=== PATIENT | female | born 1955 | race Caucasian/White ===

== ENCOUNTER 2019-09-29 20:01 | Inpatient (IN) | payer SELFPAY ==
[~2019-09-29] VITALS: Ht 167.6 cm; Wt 74.8 kg
[2019-09-29] MEDS ORDERED: ASPIRIN 81 MG CHEW TAB PO ONE (21:30)
--- NOTE | 2019-09-29 21:31 | Emergency Department Note ---
History of Present Illnes History of Present Illness Chief Complaint: Genitourinary History of Present Illness This is a 63 year old female brought by family member for evaluation of decr eased mentation since . AO x 1 . Historian: Patient, Family Member Arrival Mode: Car Onset (how long ago): day(s) (4) Severity: moderate Duration (how long): day(s) (4) Timing of current episode: constant Progression: worsening Chronicity: new Relieving factors: none Exacerbating factors: none Associated symptoms: Reports weakness (ORLANDO STEWART DO) Past Medical/Family History Physician Review I have reviewed the patient's past medical and family history. Any updates have been documented here. (ORLANDO STEWART DO) [address] Maldonado at [facility] in [place], report given and accepted (KOFFI BAILEY) Social History Smoking Cessation: Never Smoker Alcohol Use: None Any Illegal Drug Use: No (ORLANDO STEWART DO) Review of Systems Review of Systems Constitutional: Reports no symptoms EENTM: Reports no symptoms Cardiovascular: Reports no symptoms Respiratory: Reports no symptoms Gastrointestinal: Reports no symptoms Genitourinary: Reports no symptoms Musculoskeletal: Reports no symptoms Integumentary: Reports no symptoms Neurological: Reports weakness, Reports other Psychological: Reports no symptoms Endocrine: Reports no symptoms Hematological/Lymphatic: Reports no symptoms (ORLANDO STEWART DO) Physical Exam Related Data Allergies: Coded Allergies: atorvastatin (Verified Allergy, Intermediate, 09/29/19) benzonatate (Verified Allergy, Intermediate, 09/29/19) bupropion (Verified Allergy, Intermediate, 09/29/19) ciprofloxacin (Verified Allergy, Intermediate, 09/29/19) hydrochlorothiazide (Verified Allergy, Intermediate, 09/29/19) hydroxyzine (Verified Allergy, Intermediate, 09/29/19) lisinopril (Verified Allergy, Intermediate, 09/29/19) promethazine (Verified Allergy, Intermediate, 09/29/19) Triage Vital Signs Vital Signs Date Time Temp Pulse Resp B/P (MAP) Pulse Ox O2 Delivery O2 Flow Rate FiO2 09/29/19 21:23 97.2 80 16 179/96 98 Room Air Vital signs reviewed: Yes (ORLANDO STEWART DO) Physical Exam CONSTITUTIONAL Constitutional: Present well-developed, Present well-nourished HENT HENT: Present normocephalic, Present atraumatic, Present oropharynx clear/mo ist, Present nose normal HENT L/R: Present left ext ear normal, Present right ext ear normal EYES Eyes: Reports PERRL, Reports conjunctivae normal NECK Neck: Present ROM normal PULMONARY Pulmonary: Present effort normal, Present breath sounds normal CARDIOVASCULAR Cardiovascular: Present regular rhythm, Present heart sounds normal, Present capillary refill normal, Present normal rate GASTROINTESTINAL Abdominal: Present soft, Present nontender, Present bowel sounds normal GENITOURINARY Genitourinary: Present exam deferred SKIN Skin: Present warm, Present dry MUSCULOSKELETAL Musculoskeletal: Present ROM normal NEUROLOGICAL Neurological: Present other PSYCHOLOGICAL Psychological: Present mood/affect normal, Present judgement normal (STEWART,ORLANDO DO) Constitutional: Present well-developed, Present well-nourished HENT: Present normocephalic, Present atraumatic Eyes: Reports PERRL Neck: Present ROM normal Pulmonary: Present other (decreased BS antonio in bases) Abdominal: Present soft Genitourinary: Present exam deferred Skin: Present warm, Present dry Musculoskeletal: Present ROM normal Neurological: Present alert, Present weakness Psychological: Present behavior normal (KOFFI BAILEY) Results Laboratory Lab results reviewed: Yes Laboratory comments Laboratory Tests Test 09/30/19 05:39 09/30/19 03:40 09/29/19 23:50 09/29/19 20:50 Venous Blood pH 7.395 (7.35-7.38) Venous Blood Partial Pressure CO2 53.3 (44-48) Venous Blood Partial Pressure O2 36 (40-41) Venous Blood HCO3 36.3 (21-22) Venous Blood Total Carbon Dioxide 38 Venous Blood Oxygen Saturation 66 Venous Blood Base Excess 11 FiO2 % 28 % Sodium Level 115 mmol/L (136-145) 114 mmol/L (136-145) Potassium Level 3.6 mmol/L (3.5-5.1) 3.5 mmol/L (3.5-5.1) Chloride Level 70 mmol/L (98-107) 66 mmol/L (98-107) Carbon Dioxide Level 35 mmol/L (22-29) 35 mmol/L (22-29) Anion Gap 13.6 mmol/L (8-16) 16.5 mmol/L (8-16) Blood Urea Nitrogen 12 mg/dL (7-26) 15 mg/dL (7-26) Creatinine 1.11 mg/dL (0.57-1.11) 1.41 mg/dL (0.57-1.11) Estimat Glomerular Filtration Rate 49 ML/MIN (60-) 38 ML/MIN (60-) BUN/Creatinine Ratio 11 (6-25) 11 (6-25) Glucose Level 126 mg/dL (74-118) 141 mg/dL (74-118) Calcium Level 9.6 mg/dL (8.4-10.2) 10.6 mg/dL (8.4-10.2) Total Bilirubin 1.8 mg/dL (0.2-1.2) 1.7 mg/dL (0.2-1.2) Aspartate Amino Transf (AST/SGOT) 42 IU/L (5-34) 48 IU/L (5-34) Alanine Aminotransferase (ALT/SGPT) 27 IU/L (0-55) 29 IU/L (0-55) Alkaline Phosphatase 65 IU/L (40-150) 67 IU/L (40-150) Total Protein 6.7 g/dL (6.5-8.1) 7.1 g/dL (6.5-8.1) Albumin 4.3 g/dL (3.5-5.0) 4.5 g/dL (3.5-5.0) Globulin 2.4 g/dL (2.3-3.5) 2.6 g/dL (2.3-3.5) Albumin/Globulin Ratio 1.8 (0.8-2.0) 1.7 (0.8-2.0) Urine Color Yellow (YELLOW) Urine Clarity Sl cloudy (CLEAR) Urine pH 8.5 (5 - 7) Urine Specific [place] 1.020 (1.010-1.025) Urine Protein Negative (NEGATIVE) Urine Glucose (UA) Negative (NEGATIVE) Urine Ketones Negative (NEGATIVE) Urine Blood Negative (NEGATIVE) Urine Nitrite Negative (NEGATIVE) Urine Bilirubin Negative (NEGATIVE) Urine Urobilinogen 0.2 mg/dL (0.2 - 1) Urine Leukocyte Esterase Negative (NEGATIVE) Urine RBC 11-20 /HPF (0-5) Urine WBC 21-50 /HPF (0-5) Urine Epithelial Cells Few /LPF (NONE) Urine Renal Epithelial Cells Few (NONE) Urine Amorphous Sediment Many (FEW) Urine Bacteria Many /HPF (NONE) Arterial Blood pH 7.45 (7.35-7.45) Arterial Blood Partial Pressure CO2 49 mmHg (35-45) Arterial Blood Partial Pressure O2 169 mmHg (80-105) Arterial Blood HCO3 35 mmol/L (22-26) Arterial Blood Oxygen Saturation 100.0 % (95-98) Arterial Blood Base Excess 11.0 mmol/L (-2 - 3) White Blood Count 9.49 x10e3/uL (4.8-10.8) Red Blood Count 2.92 x10e6/uL (3.6-5.1) Hemoglobin 9.9 g/dL (12.0-16.0) Hematocrit 27.1 % (34.2-44.1) Mean Corpuscular Volume 92.8 fL (81-99) Mean Corpuscular Hemoglobin 33.9 pg (28-32) Mean Corpuscular Hemoglobin Concent 36.5 g/dL (31-35) Red Cell Distribution Width 17.4 % (11.7-14.4) Platelet Count 424 x10e3/uL (140-360) Neutrophils (%) (Auto) 73.9 % (38.7-80.0) Lymphocytes (%) (Auto) 10.5 % (18.0-39.1) Monocytes (%) (Auto) 13.1 % (4.4-11.3) Eosinophils (%) (Auto) 1.5 % (0.0-6.0) Basophils (%) (Auto) 0.3 % (0.0-1.0) Neutrophils # (Auto) 7.0 (2.1-6.9) Lymphocytes # (Auto) 1.0 (1.0-3.2) Monocytes # (Auto) 1.2 (0.2-0.8) Eosinophils # (Auto) 0.1 (0.0-0.4) Basophils # (Auto) 0.0 (0.0-0.1) Absolute Immature Granulocyte (auto 0.07 x10e3/uL (0-0.1) Creatine Kinase 241 IU/L (29-168) Creatine Kinase MB 12.90 ng/mL (0-5.0) Troponin I 0.052 ng/mL (0-0.300) B-Type Natriuretic Peptide 25.6 pg/mL (0-100) (ORLANDO STEWART DO) Imaging Imaging results reviewed: Yes Impressions [facility] [address] [address] Patient Name: DIANE FRANKLIN MR #: [id number] : 1955 Age/Sex: 63/F Req #: [id number] Adm Physician: Ordered by: ORLANDO STEWART DO Report #: [id number] Location: ER Room/Bed: Procedure: [id number] CT/CT BRAIN WO Exam Date: 09/29/19 Exam Time: 2244 REPORT STATUS: Signed EXAMINATION: Head CT without contrast. HISTORY:Altered mental status, weakness. COMPARISON:None. TECHNIQUE: Multidetector axial images were obtained from the foramen magnum to the vertex without contrast. The images were reconstructed using brain and bone algorithms. Thin section brain images were reformatted into coronal and sagittal planes. Dose modulation, iterative reconstruction, and/or weight based adjustment of the mA/kV was utilized to reduce the radiation dose to as low as reasonably achievable. Intravenous contrast: None IMAGE QUALITY: Suboptimal evaluation particularly at the level of skull base and posterior fossa structures due to streak artifacts. FINDINGS: Skull/scalp: No lytic or blastic. lesions. No surgical changes. Parenchyma: Nonspecific few, scattered supratentorial white matter hypodensity are likely related to small vessel ischemic changes. Focal punctate hypodensity in the inferior aspect of right putamen represents prominent perivascular space. No acute hemorrhage, mass or acute major vascular territorial infarct. Arteries: No density suggestive of thrombosis. Dural sinuses: No abnormal density suggestive of thrombosis. Ventricles: No hydrocephalus or displacement. Extra-axial spaces: No abnormal density. Brain volume: Normal for age. Craniocervical junction: No mass, Chiari malformation, or basilar invagination. Sella: No mass. Paranasal/mastoid sinuses: Imaged portions unremarkable. IMPRESSION: No acute intracranial abnormality. Mild supratentorial white matter microvascular ischemic changes. Signed by: Dr. Wanda Fulton M.D. on 09/29/2019 11:49 PM Dictated By: WANDA FULTON MD 48 Transcribed By: JOSE on 09/29/192348 COPY TO: ORLANDO STEWART DO~ [address] [place] [address] Patient Name: DIANE FRANKLIN MR #: [id number] : 1955 Age/Sex: 63/F Req #: [id number] Adm Physician: Ordered by: ORLANDO STEWART DO Report #: [id number] Location: ER Room/Bed: Procedure: [id number] DX/CHEST SINGLE (PORTABLE) Exam Date: 09/29/19 Exam Time: 2245 REPORT STATUS: Signed EXAMINATION: CHEST SINGLE (PORTABLE) INDICATION: Altered mental status COMPARISON: None FINDINGS: TUBES and LINES: None. LUNGS: Normal lung volumes. Lungs are clear. No consolidations. PLEURA: No pleural effusion or pneumothorax. HEART AND MEDIASTINUM: The cardiomediastinal silhouette is unremarkable. Aortic calcifications. BONES AND SOFT TISSUES: Thoracic vertebral kyphoplasty material. No acute osseous lesion. Soft tissues are unremarkable. Healed right midclavicular fracture. Globular soft tissue fullness in the lower central mediastinum. UPPER ABDOMEN: No free air under the diaphragm. IMPRESSION: No acute thoracic radiographic abnormality. Suspect a gastric hiatal hernia. Signed by: Aren Caicedo DO on 09/30/2019 12:09 AM Dictated By: AREN CAICEDO DO Transcribed By: JOSE on 09/30/198 COPY TO: ORLANDO STEWART DO~ (ORLANDO STEWART DO) Assessment & Plan Medical Decision Making MDM 63 yof brought for altered menstal status. CT brain ordered for brain pathology. CMP for electrolyte abl. UA and CXR for infectious etiology (ORLANDO STEWART DO) Reassessment Reassessment time: 08:24 (KOFFI BAILEY) Assessment & Plan Final Impression: (1) Hyponatremia (2) Weakness (KOFFI BAILEY) Depart Disposition: TRANS TO OTHER [facility] ORLANDO STEWART DO Sep 29, 2019 21:31 KOFFI BAILEY Sep 30, 2019 08:26
[2019-09-29] MEDS ORDERED: ONDANSETRON HCL INJ 2MG/ML 2ML 2 MG/ML VIAL ONE (21:44)
[2019-09-29 22:19] LABS: BASOPHILS % 0.3 % (0.0-1.0); EOSINOPHILS # (AUTO) 0.1 (0.0-0.4); EOSINOPHILS % 1.5 % (0.0-6.0); HEMATOCRIT 27.1 % (34.2-44.1); HEMOGLOBIN 9.9 g/dL (12.0-16.0); LYMPHOCYTES % 10.5 % (18.0-39.1); MEAN CORPUSCULAR HEMOGLOBIN 33.9 pg (28-32); MEAN CORPUSCULAR HGB CONC 36.5 g/dL (31-35); MEAN CORPUSCULAR VOLUME 92.8 fL (81-99); MONOCYTES # (AUTO) 1.2 (0.2-0.8); MONOCYTES % 13.1 % (4.4-11.3); NEUTROPHILS % 73.9 % (38.7-80.0); PLATELET COUNT 424 x10e3/uL (140-360); RED BLOOD COUNT 2.92 x10e6/uL (3.6-5.1); RED CELL DISTRIBUTION WIDTH 17.4 % (11.7-14.4)
[2019-09-29 22:38] LABS: ALBUMIN 4.5 g/dL (3.5-5.0); ALBUMIN/GLOBULIN RATIO 1.7 (0.8-2.0); ANION GAP 16.5 mmol/L (8-16); CALCIUM 10.6 mg/dL (8.4-10.2); CREATININE, SERUM 1.41 mg/dL (0.57-1.11); POTASSIUM 3.5 mmol/L (3.5-5.1)
[2019-09-29 22:44] LABS: CREATINE KINASE MB 12.9 ng/mL (0-5.0)
[2019-09-29] MEDS ORDERED: SODIUM CHLORIDE 0.9% 1000ML 1,000 ML IV STA (22:55)
--- NOTE | 2019-09-29 23:40 | NUR ---
PATIENT RECIEVED IN ROOM
[2019-09-29] MEDS ORDERED: HYDRALAZINE HCL 20 MG/ML VIAL IV ONE (23:45)
--- NOTE | 2019-09-29 23:53 | Diagnostic Imaging Report ---
EXAMINATION: Head CT without contrast. HISTORY:Altered mental status, weakness. COMPARISON:None. TECHNIQUE: Multidetector axial images were obtained from the foramen magnum to the vertex without contrast. The images were reconstructed using brain and bone algorithms. Thin section brain images were reformatted into coronal and sagittal planes. Dose modulation, iterative reconstruction, and/or weight based adjustment of the mA/kV was utilized to reduce the radiation dose to as low as reasonably achievable. Intravenous contrast: None IMAGE QUALITY: Suboptimal evaluation particularly at the level of skull base and posterior fossa structures due to streak artifacts. FINDINGS: Skull/scalp: No lytic or blastic. lesions. No surgical changes. Parenchyma: Nonspecific few, scattered supratentorial white matter hypodensity are likely related to small vessel ischemic changes. Focal punctate hypodensity in the inferior aspect of right putamen represents prominent perivascular space. No acute hemorrhage, mass or acute major vascular territorial infarct. Arteries: No density suggestive of thrombosis. Dural sinuses: No abnormal density suggestive of thrombosis. Ventricles: No hydrocephalus or displacement. Extra-axial spaces: No abnormal density. Brain volume: Normal for age. Craniocervical junction: No mass, Chiari malformation, or basilar invagination. Sella: No mass. Paranasal/mastoid sinuses: Imaged portions unremarkable. IMPRESSION: No acute intracranial abnormality. Mild supratentorial white matter microvascular ischemic changes. Signed by: Dr. Wanda Fulton M.D. on 09/29/2019 11:49 PM
--- NOTE | 2019-09-30 00:13 | Diagnostic Imaging Report ---
EXAMINATION: CHEST SINGLE (PORTABLE) INDICATION: Altered mental status COMPARISON: None FINDINGS: TUBES and LINES: None. LUNGS: Normal lung volumes. Lungs are clear. No consolidations. PLEURA: No pleural effusion or pneumothorax. HEART AND MEDIASTINUM: The cardiomediastinal silhouette is unremarkable. Aortic calcifications. BONES AND SOFT TISSUES: Thoracic vertebral kyphoplasty material. No acute osseous lesion. Soft tissues are unremarkable. Healed right midclavicular fracture. Globular soft tissue fullness in the lower central mediastinum. UPPER ABDOMEN: No free air under the diaphragm. IMPRESSION: No acute thoracic radiographic abnormality. Suspect a gastric hiatal hernia. Signed by: Aren Caicedo DO on 09/30/2019 12:09 AM
[2019-09-30 00:20] LABS: ABG HCO3 35 mmol/L (22-26); ABG PCO2 49 mmHg (35-45); ABG PH 7.45 (7.35-7.45); ABG PO2 169 mmHg (80-105)
[2019-09-30] MEDS ORDERED: ONDANSETRON HCL INJ 2MG/ML 2ML 2 MG/ML VIAL IV STA (00:43)
--- NOTE | 2019-09-30 03:45 | NUR ---
TRANSFER INITIATED TO [facility], SPOKE TO CONSTANCE
[2019-09-30 04:01] LABS: CLARITY,URINE SL CLOUDY (CLEAR); COLOR,URINE YELLOW (YELLOW)
[2019-09-30 04:22] LABS: LEUKOCYTE ESTERASE ,URINE NEGATIVE (NEGATIVE); NITRITE,URINE NEGATIVE (NEGATIVE); PROTEIN,URINE DIPSTICK NEGATIVE (NEGATIVE)
[2019-09-30 04:23] LABS: BILIRUBIN,URINE NEGATIVE (NEGATIVE); KETONES,URINE NEGATIVE (NEGATIVE); URINE UROBILINOGEN 0.2 mg/dL (0.2 - 1)
[2019-09-30 04:28] LABS: BACTERIA,URINE MANY /HPF; EPITHELIAL CELLS,URINE FEW /LPF; WBC,URINE (MAN) 21-50 /HPF (0-5)
[2019-09-30 04:29] LABS: AMORPHOUS SEDIMENT,URINE MANY (FEW); RENAL EPITHELIAL CELLS,URINE FEW
--- NOTE | 2019-09-30 06:25 | NUR ---
Note undone in EDM - 09/30/[address] MORRISON INFORMED OF PTS STATUS, AFIB RVR, NEW ORDERS RECEIVED - DC METOPROLOL SUCCINATE AND LOVENOX. NEW ORDER RECEIVED FOR METOPROLOL TARTRATE 25 MG BID, MAY ADMINISTER DIGOXIN 0.25 MG ONCE FOR AFIB RVR, INFORMED OF CURRENT PT VALUES.
[2019-09-30] MEDS ORDERED: METOPROLOL SUCCINATE 50 MG TAB XL PO SCH (06:30)
--- NOTE | 2019-09-30 06:38 | NUR ---
SISTER LORRAINE DUCKWORTH [phone], WOULD LIKE TO PROVIDE CONTACT INFO.
[2019-09-30 06:47] LABS: ALBUMIN 4.3 g/dL (3.5-5.0); ALBUMIN/GLOBULIN RATIO 1.8 (0.8-2.0); ANION GAP 13.6 mmol/L (8-16); CALCIUM 9.6 mg/dL (8.4-10.2); CREATININE, SERUM 1.11 mg/dL (0.57-1.11); POTASSIUM 3.6 mmol/L (3.5-5.1)
--- NOTE | 2019-09-30 06:49 | NUR ---
115 SODIUM-DR STEWART AWARE
--- NOTE | 2019-09-30 07:44 | NUR ---
WALKING ROUNDS WITH MIKAELA FERGUSON
[2019-09-30] MEDS ORDERED: SODIUM CHLORIDE 0.9% 1000ML 1,000 ML IV SCH (08:00)
[2019-09-30] MEDS ORDERED: ONDANSETRON HCL INJ 2MG/ML 2ML 2 MG/ML VIAL IV PRN (08:00)
--- NOTE | 2019-09-30 08:09 | NUR ---
DR BAILEY SPOKE TO DR MALHOTRA
--- NOTE | 2019-09-30 08:26 | NUR ---
PT BEING TRANSFERRED TO [facility]
[2019-09-30 08:49] LABS: GLUCOSE 126 mg/dL (74-118)
[2019-09-30 08:50] LABS: BLOOD UREA NITROGEN 12 mg/dL (7-26); OSMOLALITY,SERUM 234 mOsm/kg (278-305)
[2019-09-30 08:51] LABS: SODIUM 115 mmol/L (136-145)
[2019-09-30] MEDS ORDERED: CEFTRIAXONE SOD 1 GM/NS 50 ML 50 ML IV SCH (09:00)
--- NOTE | 2019-09-30 10:29 | NUR ---
EXTENSIVELY LONG PHONE CALL WITH 2 RN'S FOR VERBAL ACCEPTANCE OF TRANSFER WITH PT'S SISTER ENRIQUE CULP WHO DID GIVE VERBAL APPROVAL FOR TRANSFER AFTER EXTENSIVE EXPLANATIONS GIVEN. T.T/JORY.
[2019-09-30] MEDS ORDERED: CEFTRIAXONE SOD 1 GM VIAL ONE (11:24)
--- NOTE | 2019-09-30 11:45 | NUR ---
REPORT TO EMS [facility]
== END 2019-09-30 12:05 | disposition short-term general hospital (02) | DRG 641 ==
LOC: ER 23:42 → ERHOLD 09-30 07:51
PROVIDERS: ADMIT Internal Medicine; ATTEND Internal Medicine
DX: E87.1 Hypo-osmolality and hyponatremia (principal)
CPT/HCPCS: 36415; 36600; 70450; 71045; 80053; 81001; 82550; 82553; 82805; 82947; 83880; 83935; 84295; 84300; 84484; 84520; 85025; 87635; 99284; J0360; J0696; J2405; J7030

== ENCOUNTER 2019-11-20 10:21 | Emergency (ER) | payer SELFPAY ==
[~2019-11-20] VITALS: Ht 167.6 cm; Wt 74.8 kg
--- NOTE | 2019-11-20 10:37 | Emergency Department Note ---
History of Present Illnes History of Present Illness Chief Complaint: General Medicine Complaints History of Present Illness This is a 63 year old female arrives the ED with right wrist pain and chest pain after sustaining a mechanical fall . 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 Historian: Patient Arrival Mode: Car Onset (how long ago): hour(s) Radiation: Reports non-radiation Severity: mild Onset quality: sudden Duration (how long): hour(s) Progression: unchanged Context: Reports trauma/injury Past Medical/Family History Physician Review I have reviewed the patient's past medical and family history. Any updates have been documented here. Past Medical History Recent Fever: No Clinical Suspicion of Infectio: No New/Unexplained Change in Ment: No Past Medical History: Hypertension, COPD, Cancer, Anxiety, Depression Other Medical History: OSTEOPOROSIS ?LEUKEMIA MUSCLE SPASMS MDS (BLOOD CA) Past Surgical History: Appendectomy, Hysterectomy Other Surgery: UNABLE TO OBTAIN Review of Systems Review of Systems Constitutional: Reports no symptoms EENTM: Reports no symptoms Cardiovascular: Reports no symptoms Respiratory: Reports no symptoms Gastrointestinal: Reports no symptoms Genitourinary: Reports no symptoms Musculoskeletal: Reports as per HPI, Reports joint pain, Reports joint swelling Integumentary: Reports no symptoms Neurological: Reports no symptoms Psychological: Reports no symptoms Endocrine: Reports no symptoms Hematological/Lymphatic: Reports no symptoms Review of other systems: All other systems negative Physical Exam Related Data Allergies: Coded Allergies: atorvastatin (Verified Allergy, Intermediate, 09/29/19) benzonatate (Verified Allergy, Intermediate, 09/29/19) bupropion (Verified Allergy, Intermediate, 09/29/19) ciprofloxacin (Verified Allergy, Intermediate, 09/29/19) hydrochlorothiazide (Verified Allergy, Intermediate, 09/29/19) hydroxyzine (Verified Allergy, Intermediate, 09/29/19) lisinopril (Verified Allergy, Intermediate, 09/29/19) promethazine (Verified Allergy, Intermediate, 09/29/19) Triage Vital Signs Vital Signs Date Time Temp Pulse Resp B/P (MAP) Pulse Ox O2 Delivery O2 Flow Rate FiO2 11/20/19 10:26 97.9 108 22 139/95 92 Nasal Cannula 2.0 Vital signs reviewed: Yes Physical Exam CONSTITUTIONAL Constitutional: Present well-developed, Present well-nourished, Present cachectic HENT HENT: Present normocephalic, Present atraumatic, Present oropharynx clear/moist, Present nose normal HENT L/R: Present left ext ear normal, Present right ext ear normal EYES Eyes: Reports PERRL, Reports conjunctivae normal NECK Neck: Present ROM normal PULMONARY Pulmonary: Present effort normal, Present breath sounds normal CARDIOVASCULAR Cardiovascular: Present regular rhythm, Present heart sounds normal, Present capillary refill normal, Present normal rate GASTROINTESTINAL Abdominal: Present soft, Present nontender, Present bowel sounds normal GENITOURINARY Genitourinary: Present exam deferred SKIN Skin: Present warm, Present dry MUSCULOSKELETAL Musculoskeletal: Present deformity, Present tenderness, Present other (right distal wrist tenderness and deformity, normal radial pulse) NEUROLOGICAL Neurological: Present alert, Present oriented x 3, Present no gross motor or sensory deficits PSYCHOLOGICAL Psychological: Present mood/affect normal, Present judgement normal Results Imaging Imaging results reviewed: Yes Impressions Findings: Transverse fracture of the distal radius with dorsal angulation. Probable intra-articular extension. Posttraumatic positive ulnar variance. Bone demineralization. Soft tissue swelling. Impression: Transverse fracture of the distal radius with dorsal attenuation. Probable intraarticular extension. Assessment & Plan Medical Decision Making MDM 63-year-old female arrived to the ED with distal radius fracture with angulation. Patient her vascular intact with soft compartments normal radial pulse. Case discussed at length with Dr. Washington from hand/plastic surgery. Recommended splint with outpatient follow-up. No indications for acute reduction at this time given the need for operative repair and instability of the fracture. Patient's pain was well-controlled- all information is faxed to hand surgeon to follow up outpatient Surgery. Patient's sister Ms. Cabrera informed of all x-rays findings and further plan of care with hand surgery. Patient discharged home with sister Assessment & Plan Final Impression: (1) Distal radial fracture Depart Disposition: HOME, SELF-CARE Last Vital Signs Date Time Temp Pulse Resp B/P (MAP) Pulse Ox O2 Delivery O2 Flow Rate FiO2 11/20/19 10:26 97.9 108 22 139/95 92 Nasal Cannula 2.0 Home Meds Active Scripts Acetaminophen/Codeine* (TYLENOL # 3*) 1 Ea Tab, 1 TAB PO Q8HR, #14 Prov:MARIA LUISA DONALD DO 11/20/19 Tramadol Hcl (ULTRAM) 50 Mg Tablet, 50 MG PO Q6HR PRN for Mild Pain (1-3) or Fever>100.8, #14 TAB Prov:MARIA LUISA DONALD DO 11/20/19 MARIA LUISA DONALD DO Nov 20, 2019 10:37
--- OUTSIDE RECORDS SUMMARY | 2019-11-20 10:57 | XMS REPORT | Clinical Summary ---
Author Author [facility] Organization [facility] Address Unknown Phone Unavailable Care Team Providers Care [facility] Specialist Name Role Phone Carolyn Payne MD PCP Dahiana Walden NP PCP Allergies Comments Active Allergy Reactions Severity Noted Date Phenazopyridine Itching 10/14/2019 Benzonatate Rash, Itching 10/25/2016 Ciprofloxacin Rash, Itching 10/25/2016 Chlorpheniramine-Acetamin Rash 10/25/2016 alverto Was told it was causing her pancreatitis Hydrochlorothiazide 10/25/2016 Hydroxyzine Rash, Itching 10/25/2016 Lowers WBC Atorvastatin 10/25/2016 Causes pancreatitis Lisinopril 10/25/2016 patches Nicotine Hives, Rash 10/25/2016 Promethazine Hives, 10/25/2016 Itching Lowers WBC Pravastatin 10/25/2016 Hydroxyzine Pamoate 01/13/2017 Bupropion Hallucination 10/25/2016 s Levocetirizine Hives, 10/25/2016 Itching Medications End Date Status Medication Sig Dispensed Refills Start Date Active MULTIVITAMIN WITH Take by mouth 0 MINERALS (MULTIVITAMIN & daily. MINERAL FORMULA OR) Active Glucosamine 1,000 mg Tab Take by mouth 0 daily. Active [id number] OR Take by 0 mouth. Active ciclesonide (ZETONNA) 37 Use 1 Kirby 6.1 g 0 0 mcg/actuation nasal HFA in each 8 inhalerIndications: Acute nostril non-seasonal allergic daily. rhinitis, unspecified trigger Active ergocalciferol (VITAMIN Take 1 12 capsule 0 D2) 50,000 unit capsule by 8 capsuleIndications: mouth weekly Vitamin D insufficiency For 3 months and then buy vitamin D3: 2000 units and take 1 tablet/day. Active polyethylene glycol Add lukewarm 4000 mL 0 01/30 (GOLYTELY) 236-22.74-6.74 drinking 8 -5.86 gram oral water to the solutionIndications: fill adryan (4 Anemia, unspecified type liters) and shake. Drink as directed by your doctor. Active Nebulizer & Compressor 1 Device by 1 Device 0 For Neb DeviIndications: Misc.(Non-Justus 9 Chronic obstructive g; Combo pulmonary disease with Route) route acute exacerbation 4 times daily. Active mometasone-formoterol Inhale 2 39 g 3 03/26 (DULERA) 200-5 Puffs by 9 mcg/actuation mouth every inhalerIndications: 12 hours. Chronic obstructive pulmonary disease with acute exacerbation Active alendronate (FOSAMAX) 70 Take 1 tablet 12 tablet 3 mg tabletIndications: by mouth 9 Osteoporosis, unspecified weekly Take 1 osteoporosis type, tablet once a unspecified pathological week on empty fracture presence stomach with 8 oz of water and remain upright for 30 minutes. Active albuterol (PROVENTIL) 2.5 Inhale 3 mL 300 mL 3 mg /3 mL (0.083 %) by mouth 0 nebulizer every 6 hours solutionIndications: as needed for Wheeze, Chronic Wheezing. obstructive pulmonary disease with acute exacerbation Active ipratropium (ATROVENT) Inhale 2.5 mL 250 mL 3 0 0.02 % nebulizer by mouth 4 0 solutionIndications: times daily. Chronic obstructive pulmonary disease with acute exacerbation Active metoprolol succinate TAKE ONE (1) 90 tablet 0 05/26 (TOPROL XL) 50 mg TABLET(S) BY 0 extended release MOUTH DAILY.. tabletIndications: Essential hypertension Active montelukast (SINGULAIR) Take 1 tablet 90 tablet 1 10 mg tabletIndications: by mouth at 0 COPD without exacerbation bedtime nightly. Active ibuprofen (MOTRIN) 800 mg Take 1 tablet 60 tablet 1 tabletIndications: by mouth 0 Chronic midline low back every 8 hours pain as needed for Pain. Active traMADoL (ULTRAM) 50 mg Take 1 tablet 60 tablet 0 tabletIndications: by mouth 0 Chronic left-sided low every 12 back pain with left-sided hours as sciatica needed for Pain. Active OLANZapine (ZYPREXA) 5 mg Take 1 tablet 30 tablet 3 tabletIndications: by mouth at 0 Anxiety with depression bedtime nightly. 08/19/2020 Active Cyclobenzaprine Take 1 tablet 30 tablet 0 08/20/19 2 (FLEXERIL) 5 mg by mouth 0 tabletIndications: nightly at Chronic midline low back bedtime as pain needed for Muscle Spasms. Active prazosin (MINIPRESS) 2 mg Take 1 90 capsule 0 capsuleIndications: capsule by 0 Anxiety with depression mouth at bedtime nightly. Active metoprolol succinate TAKE ONE (1) 90 tablet 0 08/25 (TOPROL XL) 50 mg TABLET(S) BY 0 extended release MOUTH DAILY. tabletIndications: Essential hypertension Active ondansetron (ZOFRAN) 8 mg Take 1 tablet 30 tablet 1 tabletIndications: MDS by mouth 0 (myelodysplastic every 8 hours syndrome) as needed for Nausea. Active BOOST oral Take 1 6399 mL 1 liquidIndications: MDS Package by 0 (myelodysplastic mouth 3 times syndrome) daily. Active gabapentin (NEURONTIN) Take 2 180 capsule 0 300 mg capsules by 0 capsuleIndications: mouth 3 times Chronic midline low back daily Until pain September appointment. Active doxepin (SINEQUAN) 25 mg Take 1 90 capsule 1 0 capsuleIndications: capsule by 0 Insomnia, unspecified mouth every type evening. Active nitrofurantoin Take 1 14 capsule 0 mono/m-crystals capsule by 0 (MACROBID) 100 mg mouth 2 times capsuleIndications: daily. Dysuria Active valsartan (DIOVAN) 40 mg Take 1 tablet 90 tablet 0 tabletIndications: by mouth 0 Elevated blood pressure daily. reading Active omeprazole (PRILOSEC) 20 Take 1 90 capsule 1 0 mg delayed release capsule by 0 capsuleIndications: mouth daily Gastroesophageal reflux Omeprazole disease without can cause esophagitis bone weakness. Active dicyclomine (BENTYL) 10 Take 1 60 capsule 1 mg capsuleIndications: capsule by 0 Vomiting and diarrhea mouth 4 times daily (before meals and nightly). Active escitalopram (LEXAPRO) 10 Take 1 tablet 60 tablet 0 mg tabletIndications: by mouth 0 Anxiety daily. 12/10/2018 Discontinued (Reorder) alendronate (FOSAMAX) 70 Take 1 tablet 12 tablet 3 mg tabletIndications: by mouth 8 Osteoporosis, unspecified weekly Take 1 osteoporosis type, tablet once a unspecified pathological week on empty fracture presence stomach with 8 oz of water and remain upright for 30 minutes. 04/05/2019 Discontinued (Reorder) albuterol (PROVENTIL) 2.5 Inhale 3 mL 300 mL 3 mg /3 mL (0.083 %) by mouth 9 nebulizer every 6 hours solutionIndications: as needed for Wheeze, Chronic Wheezing. obstructive pulmonary disease with acute exacerbation 04/05/2019 Discontinued (Reorder) ipratropium (ATROVENT) Inhale 2.5 mL 250 mL 3 0 0.02 % nebulizer by mouth 4 9 solutionIndications: times daily. Chronic obstructive pulmonary disease with acute exacerbation 11/29/2018 Discontinued (Reorder) montelukast (SINGULAIR) Take 1 tablet 90 tablet 3 10 mg tabletIndications: by mouth at 9 Wheeze bedtime nightly. 01/16/2019 Discontinued (Reorder) dicyclomine (BENTYL) 10 Take 1 60 capsule 1 mg capsuleIndications: capsule by 9 Vomiting and diarrhea mouth 4 times daily (before meals and nightly). 12/10/2018 Discontinued (Reorder) prazosin (MINIPRESS) 2 mg Take 1 90 capsule 1 capsuleIndications: capsule by 9 Anxiety with depression mouth at bedtime nightly. 12/10/2018 Discontinued (Reorder) doxepin (SINEQUAN) 25 mg Take 1 90 capsule 1 0 capsuleIndications: capsule by 9 Insomnia, unspecified mouth every type evening. 12/10/2018 Discontinued (Reorder) DULoxetine (CYMBALTA) 60 Take 1 90 capsule 1 0 mg delayed release capsule by 9 capsuleIndications: mouth daily. Anxiety with depression 12/10/2018 Discontinued (Reorder) OLANZapine (ZYPREXA) 5 mg Take 1 tablet 30 tablet 3 tabletIndications: by mouth at 9 Anxiety with depression bedtime nightly. 12/01/2018 Discontinued (Reorder) metoprolol succinate TAKE ONE (1) 90 tablet 0 08/24 (TOPROL XL) 50 mg TABLET(S) BY 9 extended release MOUTH DAILY. tabletIndications: Essential hypertension 11/29/2018 Discontinued (Reorder) traMADol (ULTRAM) 50 mg Take 1 tablet 30 tablet 0 tabletIndications: by mouth 9 Chronic left-sided low every 12 back pain with left-sided hours as sciatica needed for Pain. 02/12/2019 Discontinued (Reorder) ibuprofen (MOTRIN) 800 mg Take 1 tablet 60 tablet 1 tabletIndications: by mouth 9 Chronic midline low back every 8 hours pain, with sciatica as needed for presence unspecified Pain. 01/24/2019 Discontinued (Reorder) furosemide (LASIX) 20 mg Take 1 tablet 60 tablet 1 tabletIndications: Lower by mouth 2 9 extremity edema times daily. 05/10/2019 Discontinued (Reorder) omeprazole (PRILOSEC) 20 Take 1 90 capsule 1 0 mg delayed release capsule by 9 capsuleIndications: mouth daily Gastroesophageal reflux Omeprazole disease without can cause esophagitis bone weakness. 12/10/2018 Discontinued (Reorder) gabapentin (NEURONTIN) Take 2 180 capsule 0 300 mg capsules by 9 capsuleIndications: mouth 3 times Chronic midline low back daily Until pain, with sciatica Kristen presence unspecified appointment. 03/06/2019 Discontinued (Reorder) traMADol (ULTRAM) 50 mg Take 1 tablet 60 tablet 2 tabletIndications: by mouth 9 Chronic left-sided low every 12 back pain with left-sided hours as sciatica needed for Pain. 07/05/2019 Discontinued (Reorder) montelukast (SINGULAIR) Take 1 tablet 90 tablet 1 10 mg tabletIndications: by mouth at 9 COPD without exacerbation bedtime nightly. 02/26/2019 Discontinued (Reorder) metoprolol succinate TAKE ONE (1) 90 tablet 0 (TOPROL XL) 50 mg TABLET(S) BY 9 extended release MOUTH DAILY. tabletIndications: Essential hypertension 06/07/2019 Discontinued (Reorder) prazosin (MINIPRESS) 2 mg Take 1 90 capsule 1 capsuleIndications: capsule by 9 Anxiety with depression mouth at bedtime nightly. 07/05/2019 Discontinued (Reorder) doxepin (SINEQUAN) 25 mg Take 1 90 capsule 1 0 capsuleIndications: capsule by 9 Insomnia, unspecified mouth every type evening. 04/07/2019 Discontinued (Reorder) OLANZapine (ZYPREXA) 5 mg Take 1 tablet 30 tablet 3 tabletIndications: by mouth at 9 Anxiety with depression bedtime nightly. 07/16/2019 Discontinued (Reorder) DULoxetine (CYMBALTA) 60 Take 1 90 capsule 1 0 mg delayed release capsule by 9 capsuleIndications: mouth daily. Anxiety with depression 01/15/2019 Discontinued (Reorder) gabapentin (NEURONTIN) Take 2 180 capsule 0 300 mg capsules by 9 capsuleIndications: mouth 3 times Chronic midline low back daily Until pain, with sciatica Kristen presence unspecified appointment. 02/19/2019 Discontinued (Reorder) gabapentin (NEURONTIN) Take 2 180 capsule 0 300 mg capsules by 9 capsuleIndications: mouth 3 times Chronic midline low back daily Until pain Kristen appointment. 03/24/2019 Discontinued (Reorder) dicyclomine (BENTYL) 10 Take 1 60 capsule 1 mg capsuleIndications: capsule by 9 Vomiting and diarrhea mouth 4 times daily (before meals and nightly). 04/23/2019 Discontinued (Reorder) furosemide (LASIX) 20 mg Take 1 tablet 60 tablet 1 tabletIndications: Lower by mouth 2 9 extremity edema times daily. 02/03/2019 Discontinued (Error) darbepoetin russ in Inject 0.3 mL 0.3 mL 0 01/24 polysorbate (ARANESP) 60 under the 9 mcg/0.3 mL skin once for injectionIndications: 1 dose. Macrocytic anemia 06/28/2019 Discontinued (Reorder) ibuprofen (MOTRIN) 800 mg Take 1 tablet 60 tablet 1 tabletIndications: by mouth 9 Chronic midline low back every 8 hours pain as needed for Pain. 03/24/2019 Discontinued (Reorder) gabapentin (NEURONTIN) Take 2 180 capsule 0 300 mg capsules by 9 capsuleIndications: mouth 3 times Chronic midline low back daily Until pain Kristen appointment. 06/23/2019 Discontinued (Reorder) metoprolol succinate TAKE ONE (1) 90 tablet 0 12/0 (TOPROL XL) 50 mg TABLET(S) BY 9 extended release MOUTH DAILY. tabletIndications: Essential hypertension 09/16/2019 Discontinued metoprolol succinate TAKE ONE (1) 90 tablet 0 12/0 (TOPROL XL) 50 mg TABLET(S) BY 9 extended release MOUTH DAILY. tabletIndications: Essential hypertension 06/11/2019 Discontinued (Reorder) traMADol (ULTRAM) 50 mg Take 1 tablet 60 tablet 2 tabletIndications: by mouth 9 Chronic left-sided low every 12 back pain with left-sided hours as sciatica needed for Pain. 06/01/2019 Discontinued (Reorder) dicyclomine (BENTYL) 10 Take 1 60 capsule 1 mg capsuleIndications: capsule by 9 Vomiting and diarrhea mouth 4 times daily (before meals and nightly). 04/27/2019 Discontinued (Reorder) gabapentin (NEURONTIN) Take 2 180 capsule 0 300 mg capsules by 9 capsuleIndications: mouth 3 times Chronic midline low back daily Until pain Kristen appointment. 08/02/2019 Discontinued (Reorder) OLANZapine (ZYPREXA) 5 mg Take 1 tablet 30 tablet 3 tabletIndications: by mouth at 0 Anxiety with depression bedtime nightly. 07/05/2019 Discontinued (Reorder) furosemide (LASIX) 20 mg Take 1 tablet 60 tablet 1 tabletIndications: Lower by mouth 2 0 extremity edema times daily. 06/01/2019 Discontinued (Reorder) gabapentin (NEURONTIN) Take 2 180 capsule 0 300 mg capsules by 0 capsuleIndications: mouth 3 times Chronic midline low back daily Until pain Kristen appointment. 11/13/2019 Discontinued (Reorder) omeprazole (PRILOSEC) 20 Take 1 90 capsule 1 0 mg delayed release capsule by 0 capsuleIndications: mouth daily Gastroesophageal reflux Omeprazole disease without can cause esophagitis bone weakness. 08/08/2019 Discontinued (Reorder) dicyclomine (BENTYL) 10 Take 1 60 capsule 1 mg capsuleIndications: capsule by 0 Vomiting and diarrhea mouth 4 times daily (before meals and nightly). 07/06/2019 Discontinued (Reorder) gabapentin (NEURONTIN) Take 2 180 capsule 0 300 mg capsules by 0 capsuleIndications: mouth 3 times Chronic midline low back daily Until pain Kristen appointment. 09/09/2019 Discontinued (Reorder) prazosin (MINIPRESS) 2 mg Take 1 90 capsule 0 capsuleIndications: capsule by 0 Anxiety with depression mouth at bedtime nightly. 07/31/2019 Discontinued (Reorder) traMADoL (ULTRAM) 50 mg Take 1 tablet 60 tablet 0 tabletIndications: by mouth 0 Chronic left-sided low every 12 back pain with left-sided hours as sciatica needed for Pain. 07/22/2019 Discontinued (Reorder) ibuprofen (MOTRIN) 800 mg Take 1 tablet 60 tablet 1 tabletIndications: by mouth 0 Chronic midline low back every 8 hours pain as needed for Pain. 09/23/2019 Discontinued (Reorder) furosemide (LASIX) 20 mg Take 1 tablet 60 tablet 1 tabletIndications: Lower by mouth 2 0 extremity edema times daily. 10/10/2019 Discontinued (Reorder) doxepin (SINEQUAN) 25 mg Take 1 90 capsule 1 0 capsuleIndications: capsule by 0 Insomnia, unspecified mouth every type evening. 08/14/2019 Discontinued (Reorder) gabapentin (NEURONTIN) Take 2 180 capsule 0 300 mg capsules by 0 capsuleIndications: mouth 3 times Chronic midline low back daily Until pain Kristen appointment. 10/24/2019 Discontinued (Other) DULoxetine (CYMBALTA) 60 Take 1 90 capsule 1 0 mg delayed release capsule by 0 capsule mouth 2 times daily. 08/20/2019 Discontinued (Reorder) Cyclobenzaprine Take 1 tablet 30 tablet 0 07/22/19 2 (FLEXERIL) 5 mg by mouth 0 tabletIndications: nightly at Chronic midline low back bedtime as pain needed for Muscle Spasms. 10/10/2019 Discontinued (Reorder) dicyclomine (BENTYL) 10 Take 1 60 capsule 1 mg capsuleIndications: capsule by 0 Vomiting and diarrhea mouth 4 times daily (before meals and nightly). 10/10/2019 Discontinued (Reorder) gabapentin (NEURONTIN) Take 2 180 capsule 0 300 mg capsules by 0 capsuleIndications: mouth 3 times Chronic midline low back daily Until pain September appointment. 10/24/2019 Discontinued (Other) furosemide (LASIX) 20 mg Take 1 tablet 60 tablet 1 tabletIndications: Lower by mouth 2 0 extremity edema times daily. 11/13/2019 Discontinued (Reorder) dicyclomine (BENTYL) 10 Take 1 60 capsule 1 mg capsuleIndications: capsule by 0 Vomiting and diarrhea mouth 4 times daily (before meals and nightly). 10/21/2019 terconazole (TERAZOL 7) Insert 1 45 g 0 0.4 % vaginal applicatorful 0 creamIndications: Vaginal vaginally itching every night at bedtime for 7 days.. Status Hospital, Clinic, or Ordered Dose Route Frequency Start End Date Other Facility Date Administered Medication Active darbepoetin russ in 300 mcg SC EVERY 21 DAYS 09/08/19 polysorbate (ARANESP) 20 0 injection 300 mcg Ended darbepoetin russ in 60 mcg SC ONCE 02/04/20 polysorbate (ARANESP) 19 9 injection 60 mcg Ended diphenhydrAMINE 25 mg OR EVERY 4 HOURS PRN 02/05/20 (BENADRYL) capsule 25 19 9 mgIndications: Macrocytic anemia Discontinued darbepoetin russ in 60 mcg SC EVERY 28 DAYS 03/10/20 polysorbate (ARANESP) 19 0 injection 60 mcg Ended darbepoetin russ in 200 mcg SC EVERY 14 DAYS 05/05/19 polysorbate (ARANESP) 20 0 injection 200 mcg Discontinued darbepoetin russ in 200 mcg SC EVERY 14 DAYS 07/01/19 polysorbate (ARANESP) 20 0 injection 200 mcg Ended darbepoetin russ in 200 mcg SC ONCE 07/03/19 polysorbate (ARANESP) 20 0 injection 200 mcg Ended darbepoetin russ in 200 mcg SC EVERY 14 DAYS 07/14/19 polysorbate (ARANESP) 20 0 injection 200 mcg Discontinued darbepoetin russ in 200 mcg SC EVERY 14 DAYS 08/18/19 polysorbate (ARANESP) 20 0 injection 200 mcg Discontinued darbepoetin russ in 200 mcg SC EVERY 14 DAYS 09/08/19 polysorbate (ARANESP) 20 0 injection 200 mcg Active Problems Problem Noted Date MDS (myelodysplastic syndrome) 03/10/2019 Iron overload likely 2/2 hemochromocytosis - o/w eval for for 11/30/2018 myelodysplasia, liver dz, - LESS LIKEL Y thallasemia, hemalytic anemia, Lung nodule 11/29/2018 Splenomegaly 10/24/2018 Tracheal deviation - pt initially declined CT scan du e to cost - now agrees 10/18/2018 to eval - given worsening dyspnea, tach ypnea, tachycardia, ? post-obstructive PNA sx - ER referral for urgent evaluation Decreased breath sounds 10/16/2018 Assistance needed with transportation 10/16/2018 Chronic kidney disease 10/16/2018 Lower extremity edema 04/10/2018 History of compression fracture of vertebral column 03/30/2018 COPD with acute exacerbation 01/30/2018 On home oxygen therapy - pt declines CT of chest and V/Q Scan due to cost 01/21/2018 despite understanding potential PNA / P E Gastroesophageal reflux disease without esophagitis 09/05/2017 Chronic low back pain with left-sided sciatica 10/26 Former heavy tobacco smoker 10/26/2016 Vomiting and diarrhea Anemia Vitamin D insufficiency Clavicle fracture Chronic midline low back pain Impaired mobility and activities of vivienne ly living Hypoxemia Shortness of breath Anxiety Encounters Care Team Description Date Type Specialty Coreen-Dahiana Willard V, JADA Anxiety (Primary Dx); Financial difficulties 11/18/2019 Telephonic Family Practice Encounter Anxiety (Primary Dx) 11/17/2019 Emergency Emergency Medicine Diane Kaur, MARTY 11/17/2019 Nurse Triage Krystal Patel RN 11/17/2019 Nurse Triage Estefany Salgado RN 11/16/2019 Nurse Triage Franc Hernandez III, MD Medications 11/13/2019 Refill Family Practice Carolyn Payne MD Medications 11/13/2019 Refill [facility] Marlene Casey MD Jefferson, Claudette, RN 11/10/2019 Nurse Only Dahiana Walden NP Hypoxia (Primary Dx); Preventative health care; Anxiety; COPD without exacerbation; Anxiety with depression 11/07/2019 Telephonic [facility] Encounter 10/28/2019 Ancillary Radiology Procedure Dahiana Walden NP Hyponatremia (Primary Dx); Elevated blood pressure reading; COPD without exacerbation; Anemia, unspecified type; Follow up 10/24/2019 Office Visit Family Practice Jp Obrien, Fellow(MD) Casandra Lynn, Fellow() MDS (myelodysplastic syndrome) (Primary Dx) 10/20/2019 Office Visit Hematology Elizabeth German MD Anemia, unspecified type (Primary Dx); Shortness of breath 10/16/2019 Emergency Emergency Medicine - 10/17/2019 Ryne Shoemaker MD 10/16/2019 Lab Appointment Lab Ryne Shoemaker MD History of fever (Primary Dx); Severe anemia 10/16/2019 Office Visit [facility] Mart Cruz MD Dysuria (Primary Dx); Chronic low back pain without sciatica, unspecified back pain laterality; Itching; Vaginal itching 10/14/2019 Same Day [facility] Carolyn Payne MD Medications 10/10/2019 Refill [facility] Franc Hernandez III, MD Medications 10/10/2019 Refill [facility] Noy Montes MD Medications 10/01/2019 Refill Hematology Desi Lynn, Fellow() Medications 10/01/2019 Orders Only Hematology Noy Montes MD Espinueva, Erwin Niel Bocago, RN 09/29/2019 Nurse Only Mallika Arroyo NP 09/29/2019 Orders Only Hematology Carolyn Payne MD Medications 09/23/2019 Refill [facility] Carolyn Payne MD Medications 09/16/2019 Refill [facility] Franc Hernandez III, MD Medications 09/13/2019 Refill [facility] Marely Donis MD Medications 09/09/2019 Refill [facility] Sue Dumont RN Jefferson, Claudette, RN 09/08/2019 Nurse Only Marely Donis MD Medications 09/02/2019 Refill Family Practice Marlene Casey MD Jefferson, Claudette, MARTY 08/25/2019 Nurse Only Desi Lynn, Fellow() Marlene Casey MD MDS (myelodysplastic syndrome) (Primary Dx); Chronic left-sided low back pain with left-sided sciatica 08/25/2019 Telephonic Hematology Encounter Desi Lynn, Fellow() 08/25/2019 Orders Only Franc Hernandez III, MD Medications 08/20/2019 Refill Family Practice Carolyn Payne MD Medications 08/14/2019 Refill Family Practice Marlene Casey MD Jefferson, Claudette, MARTY 08/11/2019 Nurse Only Carolyn Payne MD Medications 08/08/2019 Refill Family Practice Carolyn Payne MD Medications 08/02/2019 Refill Family Practice Noy Montes MD Medications 07/31/2019 Orders Only Hematology Desi Lynn, Fellow() MDS (myelodysplastic syndrome) (Primary Dx); Chronic left-sided low back pain with left-sided sciatica 07/28/2019 Office Visit Hematology Dahiana Walden V, PLUG SAW OPERATOR Chronic midline low back pain 07/22/2019 Telephonic Family Practice Encounter Nelia Rojo LVN Medications 07/17/2019 Refill Family Practice Myla Segovia MD Chronic left-sided low back pain with le ft-sided sciatica 07/16/2019 Telephonic Family Practice Encounter Myla Segovia MD 07/16/2019 Orders Only Family Practice Marely Donis MD Medications 07/15/2019 Refill Family Practice Sheron Moreno, MARTY 07/14/2019 Nurse Only Carolyn Payne MD Medications 07/06/2019 Refill Family Practice Zina Coon Jr., MD Medications 07/05/2019 Refill Family Practice Carolyn Payne MD Medications 07/05/2019 Refill Family Practice Sheron Moreno, MARTY 07/03/2019 Nurse Only Cachorro Burrows MD 07/03/2019 Orders Only Hematology Desi Lynn, Fellow() MDS (myelodysplastic syndrome) (Primary Dx) 06/30/2019 Telephonic Hematology Encounter Carolyn Payne MD Medications 06/28/2019 Refill Family Practice Carol Faustin RN Medications 06/23/2019 Refill Family Practice Marlene Casey MD Jefferson, Claudette, RN 06/16/2019 Nurse Only Carolyn Payne MD Medications 06/11/2019 Refill Family Practice Carolyn Payne MD Medications 06/07/2019 Refill Family Practice Sheron Moreno RN 06/02/2019 Nurse Only Carolyn Payne MD Medications 06/01/2019 Refill Family Practice Zina Coon Jr., MD Medications 06/01/2019 Refill Family Practice Franc Macias MD Hypoxia (Primary Dx) 05/22/2019 Office Visit Pulmonology Deisy Ya 05/22/2019 Clinical Case Social Work Mgt Sheron Moreno RN 05/19/2019 Nurse Only Aniyah Arevalo, INVENTORY TAKER 05/16/2019 Clinical Case Mgt Carolyn Payne MD Medications 05/10/2019 Refill Family Practice Desi Lynn, Fellow(MD) Marlene Casey MD MDS (myelodysplastic syndrome) (Primary Dx) 05/05/2019 Office Visit Hematology Zina Coon Jr., MD Medications 04/27/2019 Refill Family Practice Carolyn Payne MD Medications 04/23/2019 Refill Family Practice Dakotah Lopez RN 04/07/2019 Nurse Only Carolyn Payne MD Medications 04/07/2019 Refill Family Practice Franc Macias MD Medications 04/05/2019 Refill Pulmonology Carolyn Payne MD Medications 03/24/2019 Refill Family Practice Zina Coon Jr., MD Medications 03/24/2019 Refill Family Practice Carolyn Payne MD 03/17/2019 Hospital Oncology Encounter Carolyn Payne MD 03/17/2019 Hospital Lab Encounter Aniyah Arevalo, INVENTORY TAKER 03/11/2019 Clinical Case Mgt Desi Lynn, Fellow() MDS (myelodysplastic syndrome) (Primary Dx) 03/10/2019 Office Visit Hematology Zina Coon Jr., MD Medications 03/06/2019 Refill Family Practice Zina Coon Jr., MD Zuly Stoddard 03/03/2019 Hospital Cardiology Encounter Carolyn Payne MD Medications 02/28/2019 Refill [facility] Practice Carolyn Payne MD Medications 02/26/2019 Refill [facility] Practice Zina Coon Jr., MD Medications 02/19/2019 Refill [facility] Practice Carolyn Payne MD Medications 02/12/2019 Refill [facility] Practice Carolyn Payne MD 02/04/2019 Hospital Oncology Encounter Marcela Rice, Fellow(MD) Medications 02/04/2019 Orders Only Hematology Desi Lynn, Fellow() Macrocytic anemia (Primary Dx) 02/03/2019 Office Visit Hematology Adryan Baker MD Anemia, unspecified type 02/03/2019 Lab Appointment Lab Carolyn Payne MD Medications 01/24/2019 Refill [facility] Carolyn Payne MD Medications 01/16/2019 Refill [facility] Carolyn Payne MD Medications 01/15/2019 Refill [facility] Carolyn Payne MD Immunization due (Primary Dx); Osteoporosis, unspecified osteoporosis type, unspecified pathological fracture presence; Anxiety with depression; Insomnia, unspecified type; Chronic midline low back pain, with sciatica presence unspecified; Anemia, unspecified type 12/10/2018 Office Visit Family Carolyn Church MD Iron overload 12/09/2018 Hospital Lab Encounter Desi Lynn, Fellow() Anemia, unspecified type (Primary Dx) 12/09/2018 Office Visit Hematology Zina Coon Jr., MD Bashlor, Sanedia, LVN 12/06/2018 Nurse Only Zina Coon Jr., MD Decreased breath sounds; Oxygen dependent; Macrocytic anemia 12/06/2018 Lab Appointment Lab Carolyn Payne MD Medications 12/06/2018 Refill [facility] Zina Coon Jr., MD 12/06/2018 Orders Only Family Practice Marlene Casey MD 12/04/2018 Orders Only Hematology Carolyn Payne MD Medications 12/01/2018 Refill [facility] Zina Coon Jr., MD Abnormal LFTs; Lactic acidosis; Abnormal iron saturation 11/29/2018 Lab Appointment Lab Ryne Shoemaker MD Shelton, George Jr., MD Breast cancer screening (Primary Dx); Lactic acidosis; Abnormal LFTs; 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 Munguia on) And Acellular Pertussis, Absorbed) Family History Medical History Relation Name Comments Heart Father Heart attack Father Heart Maternal Grandmother Cancer Mother Heart Mother Relation Name Status Comments Brother Alive 1 brother Father heart condition Maternal Grandfather Maternal Grandmother Mother cancer-aorta Paternal Grandfather Paternal Grandmother Sister Alive 5 sisters Sister Alive Sister Alive Sister Alive Sister Alive Son Alive Social History Date Tobacco Use Types Packs/Day Years Used Former Smoker 1 50 Smokeless Tobacco: Former Quit: 03/27/2016 User Tobacco Cessation: Counseling Given: No Comments: quit 4 years ago Drinks/Week oz/Week Comments Alcohol Use 0 Standard drinks or equivalent 0.0 Yes Alcohol Habits Answer Date Recorded How often do you have a drink containing alcohol? 2-4 time s a month 04/10/2018 How many drinks containing alcohol do you have on No t asked a typical day when you are drinking? How often do you have six or more drinks on one Not asked occasion? Food Insecurity Answer Date Recorded Within the past 12 months, you worried that your Never charisse e 01/30/2018 food would run out before you got money to buy more. Within the past 12 months, the food you bought Never true 01/30/2018 just didn't last and you didn't have mo jacobo to get more. Sex Assigned at Date Recorded Not on file Industry Job Start Date Occupation Not on file Not on file Not on file Travel End Travel History Travel Start No recent travel history available. Date Recorded COVID-19 Exposure Response 11/17/2019 6:34 PM CDT In the last month, have you been in contact with No / Unsure someone who was confirmed or suspected to have Coronavirus / COVID-19? Last Filed Vital Signs Reading Time Taken Comments Vital Sign 158/82 11/17/2019 6:34 PM CDT Blood Pressure 91 11/17/2019 6:34 PM CDT Pulse 36.7 C (98 F) 11/17/2019 6:34 PM CDT Temperature 20 11/17/2019 6:34 PM CDT Respiratory Rate 94% 11/17/2019 6:34 PM CDT Oxygen Saturation - - Inhaled Oxygen Concentration 61.2 kg (135 lb) 10/24/2019 8:14 AM CDT Weight 165.1 cm (5' 5") 10/24/2019 8:14 AM CDT Height 22.47 10/24/2019 8:14 AM CDT Body Mass Index Plan of Treatment Care Team Description Date Type Specialty 11/24/2019 Lab Appointment Lab Casandra Lynn, Fellow() [facility] [address] [place], [place] [id number] order recurrent labs for aranesp. Thanks 11/24/2019 Office Visit Hematology Dahiana Walden V, JADA [address] [place] [address] [phone] 12/03/2019 Telephonic Family Practice Encounter Marlene Casey MD [address] [address] [phone] 12/03/2019 Lab Appointment Lab Marlene Casey MD [address] [address] [phone] Aranesp 12/03/2019 Office Visit Erick Mina MD [address] [place] [address] 12/23/2019 Telephonic Psychiatry Encounter Dahiana Walden NP [address] [place] [address] [phone] 01/01/2020 Office Visit Family Practice Health Maintenance Due Date Last Done Comments Breast Cancer Scrn 10/08/2018 10/08/2017 (Yearly) Colorectal Cancer Scrn 02/19/2019 02/19/2018, Annual (FIT/FOBT) Age 49 01/26/2017 to 74 IMM Influenza Seasonal 12/25/2019 01/17/2018, Dec to May (>/= 19 yrs) 04/25/2017 Goals Goal Patient Associated Recent Progress Patient-Stat Aut hor Goal Type Problems ed? Reduce pain Lifestyle No Mart Cruz MD Procedures Comments Procedure Name Priority Date/Time Associated Diag nosis DIFFERENTIAL, MANUAL Routine 11/10/2019 MDS (myel odysplastic 9:27 AM CDT syndrome) CBC Routine 11/10/2019 MDS (myelodyspl astic 9:27 AM CDT syndrome) CBC/DIFF Routine 11/10/2019 MDS (myelodyspl astic 9:27 AM CDT syndrome) HEMOCCULT KIT FOR Routine 11/07/2019 [facility] care SPECIMEN COLLECTION AT 9:02 AM CDT HOME U/S RENAL Routine 10/28/2019 Hyponatremia 1:45 PM CDT DIFFERENTIAL, MANUAL-WAM Routine 10/24/2019 Anemi a, unspecified type 9:55 AM CDT CBC Routine 10/24/2019 Anemia, unspeci fied type 9:55 AM CDT COMPREHENSIVE METABOLIC Routine 10/24/2019 Hypona tremia PANEL 9:55 AM CDT CBC/DIFF Routine 10/24/2019 Anemia, unspeci fied type 9:55 AM CDT DIFFERENTIAL, MANUAL Routine 10/20/2019 MDS (myel odysplastic 2:52 PM CDT syndrome) CBC STAT 10/20/2019 MDS (myelodyspl astic 2:52 PM CDT syndrome) SAVE SMEAR/ NOT FOR PATH Routine 10/20/2019 MDS ( myelodysplastic REVIEW 2:52 PM CDT syndrome) CBC/DIFF STAT 10/20/2019 MDS (myelodyspl astic 2:52 PM CDT syndrome) TRANSFUSE (RED CELL UNITS Routine 10/17/2019 - NURSING) 4:21 AM CDT TROPONIN I POC Routine 10/17/2019 3:44 AM CDT ECHG EKG PROC 12 LEAD STAT 10/17/2019 EKG; TRACING ONLY 3:27 AM CDT TRANSFUSE (RED CELL UNITS Routine 10/17/2019 - NURSING) 12:59 AM CDT TROPONIN I POC Routine 10/16/2019 11:30 PM CDT CORONAVIRUS, COVID-19, STAT 10/16/2019 LUCIA 7:29 PM CDT TROPONIN I POC Routine 10/16/2019 7:02 PM CDT ECHG EKG PROC 12 LEAD Routine 10/16/2019 EKG; TRACING ONLY 6:57 PM CDT XRAY CHEST 2 VIEWS STAT 10/16/2019 Shortness o f breath 6:27 PM CDT AMMONIA STAT 10/16/2019 6:01 PM CDT LIVER PROFILE STAT 10/16/2019 6:01 PM CDT BASIC METABOLIC PANEL STAT 10/16/2019 6:01 PM CDT RBC UNITS Timed 10/16/2019 5:45 PM CDT T&S - COLLECTION STAT 10/16/2019 5:45 PM CDT TYPE AND SCREEN STAT 10/16/2019 5:45 PM CDT CREATININE POC Routine 10/16/2019 2:23 PM CDT BMP POC Routine 10/16/2019 2:19 PM CDT URINE CULTURE Routine 10/16/2019 History of feve r 1:56 PM CDT CBC STAT 10/16/2019 History of feve r 1:56 PM CDT CBC/DIFF STAT 10/16/2019 History of feve r 1:56 PM CDT URINALYSIS Routine 10/16/2019 History of feve r MICROSCOPIC-REFLEX 1:53 PM CDT URINALYSIS STAT 10/16/2019 History of feve r 1:53 PM CDT URINALYSIS STAT 10/16/2019 History of feve r 1:53 PM CDT FERRITIN Routine 09/29/2019 Macrocytosis wi thout 10:02 AM CDT anemia BASIC METABOLIC PANEL Routine 09/29/2019 Tracheal deviation 10:02 AM CDT CBC STAT 09/29/2019 MDS (myelodyspl astic 10:01 AM CDT syndrome) CBC/DIFF STAT 09/29/2019 MDS (myelodyspl astic 10:01 AM CDT syndrome) FERRITIN Routine 09/08/2019 MDS (myelodyspl astic 9:37 AM CDT syndrome) CBC Routine 09/08/2019 MDS (myelodyspl astic 9:37 AM CDT syndrome) COMPREHENSIVE METABOLIC Routine 09/08/2019 MDS (m yelodysplastic PANEL 9:37 AM CDT syndrome) CBC/DIFF Routine 09/08/2019 MDS (myelodyspl astic 9:37 AM CDT syndrome) DIFFERENTIAL, MANUAL Routine 08/25/2019 Anemia, u nspecified type 11:36 AM CDT CBC Routine 08/25/2019 Anemia, unspeci fied type 11:36 AM CDT COMPREHENSIVE METABOLIC Routine 08/25/2019 Anemia , unspecified type PANEL 11:36 AM CDT CBC/DIFF Routine 08/25/2019 Anemia, unspeci fied type 11:36 AM CDT CBC Routine 08/11/2019 Chronic left-si ded low 10:26 AM CDT back pain with left-sided sciatica MDS (myelodysplastic syndrome) COMPREHENSIVE METABOLIC Routine 08/11/2019 Chroni c left-sided low PANEL 10:26 AM CDT back pain with left -sided sciatica MDS (myelodysplastic syndrome) CBC/DIFF Routine 08/11/2019 Chronic left-si ded low 10:26 AM CDT back pain with left-sided sciatica MDS (myelodysplastic syndrome) CBC STAT 07/28/2019 MDS (myelodyspl astic 3:16 PM CDT syndrome) CBC/DIFF STAT 07/28/2019 MDS (myelodyspl astic 3:16 PM CDT syndrome) COMPREHENSIVE METABOLIC STAT 07/28/2019 MDS (m yelodysplastic PANEL 3:16 PM CDT syndrome) CBC Routine 07/14/2019 MDS (myelodyspl astic 9:54 AM CDT syndrome) COMPREHENSIVE METABOLIC Routine 07/14/2019 MDS (m yelodysplastic PANEL 9:54 AM CDT syndrome) CBC/DIFF Routine 07/14/2019 MDS (myelodyspl astic 9:54 AM CDT syndrome) FERRITIN Add-on 06/30/2019 MDS (myelodyspl astic 11:19 AM CDT syndrome) CBC Routine 06/30/2019 MDS (myelodyspl astic 11:19 AM CDT syndrome) COMPREHENSIVE METABOLIC Routine 06/30/2019 MDS (m yelodysplastic PANEL 11:19 AM CDT syndrome) CBC/DIFF Routine 06/30/2019 MDS (myelodyspl astic 11:19 AM CDT syndrome) CBC Routine 05/05/2019 MDS (myelodyspl astic 1:04 PM EMERGENCY VEHICLE TECHNICIAN syndrome) CBC/DIFF Routine 05/05/2019 MDS (myelodyspl astic 1:04 PM EMERGENCY VEHICLE TECHNICIAN syndrome) FERRITIN Add-on 05/05/2019 MDS (myelodyspl astic 1:03 PM EMERGENCY VEHICLE TECHNICIAN syndrome) COMPREHENSIVE METABOLIC Routine 05/05/2019 MDS (m yelodysplastic PANEL 1:03 PM EMERGENCY VEHICLE TECHNICIAN syndrome) CBC Routine 04/07/2019 MDS (myelodyspl astic 10:12 AM EMERGENCY VEHICLE TECHNICIAN syndrome) COMPREHENSIVE METABOLIC Routine 04/07/2019 MDS (m yelodysplastic PANEL 10:12 AM EMERGENCY VEHICLE TECHNICIAN syndrome) CBC/DIFF Routine 04/07/2019 MDS (myelodyspl astic 10:12 AM EMERGENCY VEHICLE TECHNICIAN syndrome) RBC UNITS Timed 03/17/2019 8:36 AM EMERGENCY VEHICLE TECHNICIAN T&S - COLLECTION Routine 03/17/2019 8:36 AM EMERGENCY VEHICLE TECHNICIAN TYPE AND SCREEN Routine 03/17/2019 8:36 AM EMERGENCY VEHICLE TECHNICIAN DIFFERENTIAL, MANUAL-WAM Routine 03/17/2019 MDS ( myelodysplastic 7:47 AM EMERGENCY VEHICLE TECHNICIAN syndrome) CBC Routine 03/17/2019 MDS (myelodyspl astic 7:47 AM EMERGENCY VEHICLE TECHNICIAN syndrome) COMPREHENSIVE METABOLIC Routine 03/17/2019 MDS (m yelodysplastic PANEL 7:47 AM EMERGENCY VEHICLE TECHNICIAN syndrome) CBC/DIFF Routine 03/17/2019 MDS (myelodyspl astic 7:47 AM EMERGENCY VEHICLE TECHNICIAN syndrome) CBC Routine 03/10/2019 Macrocytic anem ia 2:40 PM EMERGENCY VEHICLE TECHNICIAN COMPREHENSIVE METABOLIC Routine 03/10/2019 Macroc ytic anemia PANEL 2:40 PM EMERGENCY VEHICLE TECHNICIAN CBC/DIFF Routine 03/10/2019 Macrocytic anem ia 2:40 PM EMERGENCY VEHICLE TECHNICIAN FERRITIN Routine 03/10/2019 Anemia, unspeci fied type 2:40 PM EMERGENCY VEHICLE TECHNICIAN TRANSTHORACIC ECHO (TTE) KRISSY 03/03/2019 Histo ry of edema 8:12 AM EMERGENCY VEHICLE TECHNICIAN RBC UNITS Timed 02/04/2019 11:33 AM EMERGENCY VEHICLE TECHNICIAN T&S - COLLECTION Routine 02/04/2019 11:33 AM EMERGENCY VEHICLE TECHNICIAN TYPE AND SCREEN Routine 02/04/2019 11:33 AM EMERGENCY VEHICLE TECHNICIAN DIFFERENTIAL, MANUAL Routine 02/03/2019 Anemia, u nspecified type 12:58 PM EMERGENCY VEHICLE TECHNICIAN CBC Routine 02/03/2019 Anemia, unspeci fied type 12:58 PM EMERGENCY VEHICLE TECHNICIAN LIVER PROFILE Routine 02/03/2019 Anemia, unspeci fied type 12:58 PM EMERGENCY VEHICLE TECHNICIAN FERRITIN Routine 02/03/2019 Anemia, unspeci fied type 12:58 PM EMERGENCY VEHICLE TECHNICIAN BASIC METABOLIC PANEL Routine 02/03/2019 Anemia, unspecified type 12:58 PM EMERGENCY VEHICLE TECHNICIAN CBC/DIFF Routine 02/03/2019 Anemia, unspeci fied type 12:58 PM EMERGENCY VEHICLE TECHNICIAN DIFFERENTIAL, MANUAL-WAM Routine 12/09/2018 Anemi a, unspecified type 4:13 PM CDT LIVER PROFILE Routine 12/09/2018 Iron overload 4:13 PM CDT GAMMA GLUTAMYL Routine 12/09/2018 Iron overload TRANSFERASE (GGT) 4:13 PM CDT HAPTOGLOBIN Routine 12/09/2018 Iron overload 4:13 PM CDT LACTATE DEHYDROGENASE Routine 12/09/2018 Iron ove rload (LDH) 4:13 PM CDT ELECTROPH, BLD Routine 12/09/2018 Iron overload 4:13 PM CDT HGB FRACTIONATION Routine 12/09/2018 Iron overloa d 4:13 PM CDT SAVE SMEAR/ NOT FOR PATH Routine 12/09/2018 Iron overload REVIEW 4:13 PM CDT CBC Routine 12/09/2018 Anemia, unspeci fied type 4:13 PM CDT COMPREHENSIVE METABOLIC Routine 12/09/2018 Anemia , unspecified type PANEL 4:13 PM CDT CBC/DIFF Routine 12/09/2018 Anemia, unspeci fied type 4:13 PM CDT BMP POC Routine 12/06/2018 9:18 AM CDT POC BMP - IN LAB (STAT) STAT 12/06/2018 Acute kidney injury 9:07 AM CDT superimposed on CKD CBC STAT 12/06/2018 Macrocytic anem ia 9:07 AM CDT CBC/DIFF STAT 12/06/2018 Macrocytic anem ia 9:07 AM CDT D-DIMER Routine 12/06/2018 Decreased breat h sounds 9:07 AM CDT Oxygen dependent BMP POC Routine 11/29/2018 10:23 AM CDT HERED.HEMOCHROMATOSIS, Routine 11/29/2018 Abnorma l iron saturation DNA 10:18 AM CDT POC BMP - IN LAB (STAT) STAT 11/29/2018 Lactic acidosis 10:17 AM CDT DIFFERENTIAL, MANUAL-WAM Routine 11/29/2018 Abnor mal LFTs 10:16 AM CDT CBC Routine 11/29/2018 Abnormal LFTs 10:16 AM CDT FERRITIN Routine 11/29/2018 Abnormal iron s aturation 10:16 AM CDT CBC/DIFF Routine 11/29/2018 Abnormal LFTs 10:16 AM CDT IRON PROFILE Routine 11/29/2018 Abnormal iron s aturation 10:16 AM CDT LIVER PROFILE Routine 11/29/2018 Abnormal LFTs 10:16 AM CDT UREA NITROGEN/CREATININE Routine 11/29/2018 Lacti c acidosis 10:16 AM CDT after 11/19/2018 Results * CBC/Diff (11/10/2019 9:27 AM CDT) Only the most recent of 19 results within the time period is included. WBC 7.1 4.5 - 11.0 K/uL [facility] RBC 2.57 (L) 4.20 - 5.40 M/uL [facility] Hemoglobin 8.1 (L) 12.0 - 16.0 g/dL [facility] Hematocrit 26.3 (L) 37.0 - 47.0 % [facility] MCV 102.3 (H) 82.0 - 92.0 fL [facility] MCH 31.5 27.0 - 32.0 pg [facility] MCHC 30.8 (L) 32.0 - 36.0 g/dL [facility] RDW 68.7 (H) 36.4 - 46.3 fL [facility] Platelet 324 150 - 400 K/uL [facility] Mean Platelet 11.1 9.4 - 12.4 fL [facility] Volume LAB Specimen Blood - Arm, right Performing Organization Address City/State/Zipcode Ph one Number [facility] [place] [address] * Differential, Manual (11/10/2019 9:27 AM CDT) Only the most recent of 4 results within the time period is included. WBC 7.1 4.5 - 11.0 K/uL [facility] Neutrophil 68.0 34.0 - 70.0 % [facility] Lymphs 17.0 (L) 20.0 - 50.0 % [facility] Monocytes 5.0 5.0 - 12.0 % [facility] Eos 10.0 (H) 0.7 - 5.0 % [facility] Basos [facility] Segs + Bands, 4.83 K/uL [facility] Abs LAB Percent NRBC 3 /100 WBC [facility] Neutrophils 4.83 1.56 - 6.13 K/uL [facility] (Absolute) LAB Lymphs 1.21 1.18 - 3.74 K/uL [facility] (Absolute) LAB Monocytes(Absol 0.36 0.24 - 0.36 K/uL [facility] paimiut) LAB Eos (Absolute) 0.71 (H) 0.04 - 0.36 K/uL [facility] Baso (Absolute) [facility] Cells Counted 100 [facility] Specimen Blood - Arm, right Performing Organization Address City/State/Zipcode Ph one Number [facility] [place] [address] * U/S RENAL (10/28/2019 1:45 PM CDT) Specimen Impressions Performed At IMPRESSION: SMS 1. 1.8 cm angiomyolipoma in the lower p ole of the left kidney. 2. Increased echogenicity of the renal cortex bilaterally suggestive of medical renal disease. Dictated By: Isha Bruno MD, 10/28/2019 2:11 PM I have reviewed the study and agree wit h the findings in this report. Signed By: Samy Landon MD, 10/28/2019 2: 59 PM Narrative Performed At EXAM: Renal Ultrasound SMS INDICATION: hyponatremia COMPARISON: None. Correlation with CT a bdomen dated 10/24/2018. TECHNIQUE: Transverse and longitudinal images of the kidneys and bladder were obtained. FINDINGS: Right Kidney: Size: 9.4 cm Echogenicity: Increased Parenchymal thickness: Normal Collecting system: No hydronephro sis Stones: None Cyst/Mass: Simple cyst located in the superior pole measuring 1 x 0.6 x 0.9 cm Left Kidney: Size: 10.7 cm Echogenicity: Increased Parenchymal thickness: Normal Collecting system: No hydronephro sis Stones: None Cyst/Mass: No shadowing hyperecho ic mass in the inferior pole measuring 1.8 x 1.4 x 1.6 cm most sugge stive of an angiomyolipoma. Bladder: Unremarkable Procedure Note Interface, Rad/Mammog In - 10/28/2019 3:04 PM CDT EXAM: Renal Ultrasound INDICATION: hyponatremia COMPARISON: None. Correlation with CT abdomen dated 10/24/2018. TECHNIQUE: Transverse and longitudinal images of the kidneys and bladder were obtained. FINDINGS: Right Kidney: Size: 9.4 cm Echogenicity: Increased Parenchymal thickness: Normal Collecting system: No hydronephrosis Stones: None Cyst/Mass: Simple cyst located in the superior pole measuring 1 x 0.6 x 0.9 cm Left Kidney: Size: 10.7 cm Echogenicity: Increased Parenchymal thickness: Normal Collecting system: No hydronephrosis Stones: None Cyst/Mass: No shadowing hyperechoic mass in the inferior pole measuring 1.8 x 1.4 x 1.6 cm most suggestive of an angiomyolipoma. Bladder: Unremarkable IMPRESSION IMPRESSION: 1. 1.8 cm angiomyolipoma in the lower po le of the left kidney. 2. Increased echogenicity of the renal c ortex bilaterally suggestive of medical renal disease. Dictated By: Isha Bruno MD, 10/28/2019 2:11 PM I have reviewed the study and agree with the findings in this report. Signed By: Samy Landon MD, 10/28/2019 2:59 PM Performing Organization Address City/State/Zipcode Ph one Number [facility] * Differential, Manual (10/24/2019 9:55 AM CDT) Only the most recent of 4 results within the time period is included. Neutrophil 58.0 34.0 - 70.0 % [facility] Lymphs 28.0 20.0 - 50.0 % [facility] Monocytes 6.0 5.0 - 12.0 % [facility] Eos 5.0 0.7 - 5.0 % [facility] Basos 2.0 (H) 0.1 - 1.2 % [facility] Myelocyte 1.0 % [facility] Neutrophils 2.73 1.56 - 6.13 K/uL [facility] (Absolute[facility] Lymphs 1.32 1.18 - 3.74 K/uL [facility] (Absolute[facility] Monocytes(Absol 0.28 0.24 - 0.36 K/uL [facility] paimi[facility]) [facility]AT[facility] Eos (Absolute) 0.24 0.04 - 0.36 K/uL [facility] Baso (Absolute) 0.09 (H) 0.01 - 0.08 K/uL [facility] Platelet Clumps Present (A) None seen [facility] Cells Counted [facility] Specimen Blood Performing Organization Address [facility] one Number [facility] [address] [place] [address] [phone] * Comprehensive Metabolic Panel (10/24/2019 9:55 AM CDT) Only the most recent of 12 results within the time period is included. Pathologist [facility] Sodium 137 136 - 145 mmol/L [facility] Potassium 4.6 3.5 - 5.1 mmol/L [facility] Chloride 87 (L) 98 - 107 mmol/L [facility] CO2 44 (H) 21 - 31 mmol/L [facility] Glucose 106 70 - 110 mg/dL [facility] Calcium 10.8 (H) 8.6 - 10.3 mg/dL [facility] Urea Nitrogen 10.0 7.0 - 25.0 mg/dL [facility] Creatinine 0.9 0.6 - 1.2 mg/dL [facility] Alkaline 56 34 - 104 U/L [facility] ALT 20 7 - 52 U/L [facility] AST 15 13 - 39 U/L [facility] Bilirubin, 1.1 0.2 - 1.2 mg/dL [facility] Total [facility] Total Protein 6.2 6.0 - 8.3 g/dL [facility] GFR, Estimated 63 (L) >=90 mL/min/1.73 m2 [facility] Albumin 4.6 3.7 - 5.3 g/dL [facility] Anion Gap 6 5 - 16 mmol/L [facility] Specimen Blood Performing Organization Address [facility] one Number [facility] [address] [place] [address] * Save Smear (10/20/2019 2:52 PM CDT) Only the most recent of 2 results within the time period is included. Pathologist [facility] Save Smear Smear stained and available [facility] for review LAB Specimen Blood - Arm, right Performing Organization Address [facility] one Number [facility] [place] [address] * Transfuse (Red Cell units - nursing) (10/17/2019 4:21 AM CDT) Only the most recent of 3 results within the time period is included. * POCT TROPONIN I POC docked device (10/17/2019 3:44 AM CDT) Only the most recent of 3 results within the time period is included. Pathologist [facility] Troponin POC 0.01 0.00 - 0.08 ng/mL [facility] Specimen Blood, venous Performing Organization Address [facility] one Number [facility] [address] [place] [address] LABORATORY * 12 LEAD EKG (10/17/2019 3:27 AM CDT) [facility] [address] [facility] Test Date: 2019-10-17 Pat Name: DIANE FRANKLIN Department: [id number] Room: Gender: F Manager Primary: : 1955 Requested By: BARI Alvarez Order Number: [id number] Reading MD: Sudhakar Burkett M.D. Measurements Intervals [place] Rate: 93 P: 61 WV: 141 QRS: 38 QRSD: 90 T: 71 QT: 326 QTc: 406 Interpretive Statements SINUS RHYTHM Electronically Signed On 10-17-2019 5:54:19 CDT by Sudhakar Burkett M.D. Specimen Performing Organization Address [facility] one Number [facility] * Coronavirus, CoVID-19, LUCIA (10/16/2019 7:29 PM CDT) [facility] COVID-19 Not DetectedComment: Not Detected [facility] (SARS-COV-2) INTERPRETATION: No detectable LABORAT ORY levels of SARS-CoV-2 Coronavirus (COVID-19) were present in this patient's sample by this test. A not detected result does not exclude the possibility of active infection with this virus due to other factors that may affect the results such as a poorly collected sample, viral titers below the limit of detection of the assay, and the infrequent possibility of inhibitors in the sample. This result should be interpreted in conjunction with clinical, radiographic, and other laboratory findings and should not be used as the sole indicator of active infection with SARS-CoV-2 Coronavirus (COVID-19). Specimen Other (Specify in Comments) - Nasopharynx Narrative Performed At COMMENT: This [employer] COVID-19 yodit l-time PCR Emergency Use [facility] Authorization (EUA) test was developed, and its performance characteristics determined by the [facility] diagnostic Laboratory. It has been validated by bridging studies under the FDA "Policy for Diagnostic Tests for Coronavirus Disease-2019 during the [facility]". This laboratory is certified under federal CLIA regulation s to perform this type of high complexity testing. Performing Organization Address [facility] one Number [facility] [address] [place] [address] [phone] * 12 LEAD EKG (10/16/2019 6:57 PM CDT) [address] [facility] Test Date: 2019-10-16 Pat Name: DIANE FRANKLIN Department: 5520 Room: Gender: F Manager Primary: [id number] : 1955 Requested By: ELIZABETH GERMAN Order Number: [id number] Reading MD: Sudhakar Burkett M.D. Measurements Intervals [place] Rate: 97 P: 69 WV: 138 QRS: 40 QRSD: 96 T: 71 QT: 326 QTc: 415 Interpretive Statements SINUS RHYTHM Electronically Signed On 10-16-2019 19:53:58 CDT by Sudhakar Burkett M.D. Specimen Performing Organization Address [facility] one Number SMS * XRAY CHEST 2 VIEWS (10/16/2019 6:27 PM CDT) Specimen Impressions Performed At IMPRESSION: [facility] No acute thoracic abnormality. Signed By: Jdue Salcedo MD, 10/16/2019 6:32 PM Narrative Performed At EXAMINATION: XRAY CHEST 2 VIEWS SMS COMPARISON: None INDICATION: shortness of breath, fever DISCUSSION: Lines/tubes: None. Lungs: Age-related interstitial change. No pneumonia or pulmonary edema. Pleura: No pleural effusion or pneumoth orax. Heart and mediastinum: The heart and the mediastinum are unremarkable. Bones and soft tissues: No acute osse ous abnormality. Prior vertebral augmentation of the thoracic vertebrae. Procedure Note Interface, Rad/Mammog In - 10/16/2019 6:37 PM CDT EXAMINATION: XRAY CHEST 2 VIEWS COMPARISON: None INDICATION: shortness of breath, fever DISCUSSION: Lines/tubes: None. Lungs: Age-related interstitial change. No pneumonia or pulmonary edema. Pleura: No pleural effusion or pneumothorax. Heart and mediastinum: The heart and the mediastinum are unremarkable. Bones and soft tissues: No acute osseous abnormality. Prior vertebral augmentation of the thoracic vertebrae. IMPRESSION IMPRESSION: No acute thoracic abnormality. Signed By: Jude Salcedo MD, 10/16/2019 6:32 PM Performing Organization Address [facility] one Number SMS * Liver Profile (10/16/2019 6:01 PM CDT) Only the most recent of 4 results within the time period is included. Total Protein 6.4 6.0 - 8.3 g/dL [facility] Bilirubin, 1.4 (H) 0.2 - 1.2 mg/dL [facility] Total [facility]OR[facility]ORY Alkaline 53 34 - 104 U/L [facility] Phosphatase LABORATORY AST 18 13 - 39 U/L [facility] Direct 0.3 (H) 0.0 - 0.2 mg/dL [facility] Bilirubin [facility] ALT 27 7 - 52 U/L [facility] Albumin 4.5 3.7 - 5.3 g/dL [facility] Specimen Blood Performing Organization Address [facility] one Number [facility] [address] [place] [address] * Basic Metabolic Panel (10/16/2019 6:01 PM CDT) Only the most recent of 3 results within the time period is included. Sodium 128 (L) 136 - 145 mmol/L [facility] Potassium 4.6 3.5 - 5.1 mmol/L [facility] Chloride 89 (L) 98 - 107 mmol/L [facility] CO2 32 (H) 21 - 31 mmol/L [facility] Urea Nitrogen 15.0 7.0 - 25.0 mg/dL [facility] Creatinine 1.2 0.6 - 1.2 mg/dL [facility] Glucose 151 (H) 70 - 110 mg/dL [facility] Calcium 9.8 8.6 - 10.3 mg/dL [facility] GFR, Estimated 45 (L) >=90 mL/min/1.73 m2 [facility] Anion Gap 7 5 - 16 mmol/L [facility] Specimen Blood Performing Organization Address [facility] one Number [facility] [address] [place] [address] [phone] * Ammonia (10/16/2019 6:01 PM CDT) Ammonia 47.0 16.0 - 53.0 umol/L [facility] Specimen Blood Performing Organization Address [facility] one Number [facility] [address] [place] [address] * T&S Collection (10/16/2019 5:45 PM CDT) Only the most recent of 3 results within the time period is included. Specimen 10/19/2019 23:59 [facility] Expiration ABO/RH O NEG [facility] Antibody Screen NEG [facility] Specimen Blood Performing Organization Address [facility] one Number [facility] [address] [place] [address] * 2 Units (10/16/2019 5:45 PM CDT) Only the most recent of 3 results within the time period is included. Irrad LRBC compatible [facility] Unit ABO Type O [facility] Unit Rh Type NEG [facility] Product Code E0332 [facility] Unit Number [id number] [facility] Unit Status transfused [facility] B[facility] ISBT Product [id number] [facility] Code Blood Type 9500 [facility] Blood [id number] [facility] Expiration Date Irrad LRBC compatible [facility] Unit ABO Type O [facility] Unit Rh Type NEG [facility] B[facility] Product Code E0332 [facility] Unit Number [id number] [facility] Unit Status transfused [facility] ISBT Product [id number] [facility] Code Blood Type 9500 [facility] Blood [id number] [facility] Expiration Date Specimen Blood Performing Organization Address [facility] one Number [facility] [address] [place] [address] * POCT CREATININE POC docked device (10/16/2019 2:23 PM CDT) Creatinine POC 1.3 0.6 - 1.3 mg/dL [facility] GFR, Estimated 43 (L) >=90 mL/min/1.73 m2 [facility] Specimen Blood, venous Performing Organization Address [facility] one Number [facility] [address] [place] [address] * POCT BMP POC docked device (10/16/2019 2:19 PM CDT) Only the most recent of 3 results within the time period is included. Sodium POC 131 (L) 136 - 145 mmol/L [facility] Potassium POC 4.3 3.5 - 5.1 mmol/L [facility] Chloride POC 87 (L) 98 - 107 mmol/L [facility] TCO2 POC 33 (H) 21 - 32 mmol/L [facility] Urea Nitrogen 13 7 - 18 mg/dL [facility] POC Glucose POC 93 74 - 106 mg/dL [facility] Specimen Blood, venous Performing Organization Address [facility] one Number [facility] [address] [place] [address] [phone] * Urine Culture (10/16/2019 1:56 PM CDT) Pathologist [facility] Urine Culture No growth 2 days [facility] Specimen Urine - Clean Catch [place] Performing Organization Address [facility] one Number [facility] [address] [place] [address] * URINALYSIS, MICROSCOPIC (10/16/2019 1:53 PM CDT) Pathologist [facility] RBC 0-1 0 - 4 /HPF [facility] WBC 5-20 (A) 0 - 5 /HPF [facility] Epithelial Cell <1/HPF <1 /HPF [facility] Bacteria Few (A) None seen /HPF [facility] Specimen Urine - Clean Catch [place] Performing Organization Address [facility] one Number [facility] [address] [place] [address] * Urinalysis (10/16/2019 1:53 PM CDT) Color Yellow Colorless, Straw, [facility] Yellow Clarity Clear Clear [facility] Spec [place], 1.015 1.005 - 1.035 [facility] Ur pH, Ur 5.5 5.0 - 8.0 [facility] Protein, Ur Negative Negative mg/dL [facility] Glucose, Ur Negative Negative [facility] Ketone, Ur Negative Negative [facility] Bilirubin, Ur Negative Negative [facility] Nitrite, Ur Negative Negative [facility] Urobilinogen, <1.0 <1.0 EU/dL [facility] Ur Leukocyte trace (A) Negative [facility] Blood, Ur Negative Negative [facility] Specimen Urine - Clean Catch [place] Performing Organization Address [facility] one Number [facility] [address] [place] [address] * Ferritin (09/29/2019 10:02 AM CDT) Only the most recent of 7 results within the time period is included. 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) Pathologist [facility] TRANSTHORACIC Transthoracic SMS ECHO (TTE) Echo Report DIANE FRANKLIN Age: 63 Gender: F : 1955 Exam Date: 03/03/2019 08:12 Exam Location: [facility] Echo Ordering Phys: ZINA COON Referring Phys: ZINA COON Reading Phys: Chrissy Jarrett MD Fellow Phys: Fellow Phys: Executive Director Global Brand Marketing: Zuly Stoddard Reason For Exam: Indications: h/o edema, CHF ICD-9 Codes: I50.9 Exam Type: TRANSTHORACIC ECHO (TTE) Procedure CPT: 19164 Addtional CPT: Ht (in): 65 BSA: 1.85 HR: 73 Rhythm: Sinus rhythm Wt (lb): 161 BP: 153 / 91 Technical Quality: History: MEASUREMENTS Normal ranges based on 95% confidence intervals for adults, some normal patients may fall outside of this range especially when indexing for BSA 2D ECHO LV Diastolic Diameter PLAX 4.7 cm 4.2-5.8 (M) / 3.8-5.2 (F) LV Systolic Diameter PLAX 3.2 cm 2.5-4.0 (M) / 2.2-3.5 (F) LV Fractional Shortening PLAX 31.8 % IVS Diastolic Thickness 1.1 cm 0.6-1.0 (M) / 0.6-0.9 (F) LVPW Diastolic Thickness 1.1 cm 0.6-1.0 (M) / 0.6-0.9 (F) LV Relative Wall Thickness 0.46 <= 0.42 LVOT Diameter 1.6 cm Aortic Root Diameter 3 cm LA Systolic Diameter LX 3.8 cm LA Ao Ratio 1.3 LA Volume 68.4 cm LA Volume Index 37 cm/m 16 - 34 cm/m LV Mass by linear method 188 g LV Mass by linear method Index 102 g/m DOPPLER LVOT Peak Velocity 135 cm/s LVOT Peak Gradient 7.3 mmHg LVOT Mean Velocity 90.5 cm/s LVOT Mean Gradient 3.5 mmHg LVOT Velocity Time Integral 24.6 cm LVOT Stroke Volume 49.6 cm Mitral E Point Velocity 92.2 cm/s Mitral A Point Velocity 63.5 cm/s Mitral E to A Ratio 1.5 TR Peak Velocity 272 cm/s TR Peak Gradient 29.7 mmHg LV E' Lateral Velocity 11.5 cm/s Mitral E to LV E' Lateral Ratio 8 LV E' Septal Velocity 10 cm/s Mitral E to LV E' Septal Ratio 9.2 FINDINGS Left Ventricle Normal left ventricular size. Left ventricular wall thickness mildly increased. Normal left ventricular systolic function. Left ventricular ejection fraction is 60-64%. There are no regional wall motion abnormalities noted. E/e ratio suggests normal LV filling pressure. Right Ventricle Right ventricle at upper limits of normal. Normal right ventricular function. Right Atrium Normal right atrial size. Left Atrium Mild left atrial dilatation. IAS Mitral Valve Mitral leaflets mildly thickened. Trace mitral regurgitation. Aortic Valve The aortic valve is trileaflet and opens well. Trace aortic regurgitation. Tricuspid Valve Normally structured tricuspid valve. Trace tricuspid regurgitation. Insufficient TR jet to estimate pulmonary artery systolic pressure. Pulmonic Valve Pulmonic valve not well visualized. Pericardium No pericardial effusion. Aorta Normal size aortic root adjusted for BSA. IVC RA pressure is 0-5 mmHg. CONCLUSIONS Normal left ventricular size. Left ventricular wall thickness mildly increased. Normal left ventricular systolic function. Left ventricular ejection fraction is 60-64%. There are no regional wall motion abnormalities noted. E/e ratio suggests normal LV filling pressure. Right ventricle at upper limits of normal. Normal right ventricular function. Insufficient TR jet to estimate pulmonary artery systolic pressure. Compared to prior echo no significant changes. Chrissy Jarrett MD (Electronically Signed) Final Date: 03 March 2019 10:40 2D ECHO LV Diastolic Diameter PLAX 4.7 cm 4.2-5.8 (M) / 3.8-5.2 (F) LV Systolic Diameter PLAX 3.2 cm 2.5-4.0 (M) / 2.2-3.5 (F) LV Fractional Shortening PLAX 31.8 % IVS Diastolic Thickness 1.1 cm 0.6-1.0 (M) / 0.6-0.9 (F) LVPW Diastolic Thickness 1.1 cm 0.6-1.0 (M) / 0.6-0.9 (F) LV Relative Wall Thickness 0.46 <= 0.42 LVOT Diameter 1.6 cm Aortic Root Diameter 3 cm LA Systolic Diameter LX 3.8 cm LA Ao Ratio 1.3 LA Volume 68.4 cm LA Volume Index 37 cm/m 16 - 34 cm/m LV Mass by linear method 188 g LV Mass by linear method Index 102 g/m DOPPLER LVOT Peak Velocity 135 cm/s LVOT Peak Gradient 7.3 mmHg LVOT Mean Velocity 90.5 cm/s LVOT Mean Gradient 3.5 mmHg LVOT Velocity Time Integral 24.6 cm LVOT Stroke Volume 49.6 cm Mitral E Point Velocity 92.2 cm/s Mitral A Point Velocity 63.5 cm/s Mitral E to A Ratio 1.5 TR Peak Velocity 272 cm/s TR Peak Gradient 29.7 mmHg LV E' Lateral Velocity 11.5 cm/s Mitral E to LV E' Lateral Ratio 8 LV E' Septal Velocity 10 cm/s Mitral E to LV E' Septal Ratio 9.2 Specimen Performing Organization Address [facility] one Number SMS * LDH [Lactate Dehydrogenase] (12/09/2018 4:13 PM CDT) LDH 228 140 - 271 U/L [facility] Specimen Blood Performing Organization Address [facility] one Number [facility] [address] [place] [address] * Hgb Fractionation (12/09/2018 4:13 PM CDT) [facility] Hemoglobin A 98.0 95.0 - 98.0 % [facility] Hemoglobin A2 2.0 (L) 2.2 - 3.3 % [facility] Interpretation No variant hemoglobin or [facility] evidence of thalassemia LABORATORY detected. Charanjit Castro MD / [id number] December 12, 2018 4:34 PM Specimen Blood Performing Organization Address [facility] one Number [facility] [address] [place] [address] * Haptoglobin (12/09/2018 4:13 PM CDT) [facility] Haptoglobin 98 44 - 215 mg/dL [facility] Specimen Blood Performing Organization Address [facility] one Number [facility] [address] [place] [address] * GGT [Gamma-Glutamyl Transferase] (12/09/2018 4:13 PM CDT) [facility] GGT 14 9 - 64 U/L [facility] Specimen Blood Performing Organization Address [facility] one Number [facility] [address] [place] [address] [phone] * Electroph, Bld (12/09/2018 4:13 PM CDT) [facility] COMMENT Marked hyperalbuminemia is [facility] present with marked LABORATORY hypogammaglobulinemia. Mart Salvador M.D./[id number] Protein Comment: 7.1 6.0 - 8.3 g/dL [facility] Specimen Blood Performing Organization Address [facility] one Number [facility] [address] [place] [address] * POC BMP - In Lab (STAT) (12/06/2018 9:07 AM CDT) Only the most recent of 2 results within the time period is included. [facility] Hold Specimen [id number] [facility] Specimen Blood Performing Organization Address [facility] one Number [facility] [address] [place] [address] [facility] * D-Dimer (12/06/2018 9:07 AM CDT) D-Dimer 0.22Comment: Values of 0.22 - 0.48 ug/mL [facility] quantitative D-Dimer less than FEU [facility]Y 0.40 ug/mL FEU have been reported to be associated with a low probability of deep vein thrombosis/pulmonary embolism. This test alone should not be used to rule out DVT/PE. Specimen Blood Performing Organization Address City/State/Zipcode Ph one Number [facility] [address] [place] [address] [phone] * Hereditary Hemochromatosis, DNA (11/29/2018 10:18 AM CDT) Hereditary Comment BT [facility] Hemochromatosis Comment: Result: C282Y/H63D Two mutations (C282Y and H63D) identified Interpretation: This patient's sample was analyzed for the hereditary hemochromatosis (HH) mutations C282Y, H63D, and S65C. One copy of C282Y and one copy of H63D were identified. Results for S65C were negative. The mutations analyzed by [facility] are most common in the population. Although some patients with this genotype experience biochemically defined abnormalities of iron overload, the penetrance for clinical symptoms, such as cirrhosis, cardiomyopathy, diabetes and arthropathy, is low. The diagnosis of HH should not rely on DNA testing alone. Diagnosis of HH should include clinical findings and other test results, such as transferrin-iron saturation and/or serum ferritin studies and/or liver biopsy. HH is inherited in a recessive manner. All the offspring from this patient will be carriers, and other family members are at increased risk. Genetic counseling and HH molecular testing are recommended for at-risk family members. Methodology: DNA Analysis of the HFE gene was performed by PCR amplification followed by restriction enzyme digestion analyses. Reference: Johny JS and Walker AP. (2000). [place] Test 4:97-101. [place] ME et al. (1999). AM J Prev Med 16:134-140. Hugh Grimm (2002). Lancet 360(1287):1674-69. Franci Cobb et al. (2002). Blood Cells, Molecules. and Diseases. 29(3):418-432. Sherry Regan et al. (2003). [place] Med. 5(1):1-8. Ja SPARKS et al. (2003). [place] Med. 5(4):304-10. This test was developed and its performance characteristics determined by [facility]. It has not been cleared or approved by the Food and Drug Administration. Genetic counselors are available for health care providers to discuss results at [phone]. Alejandra Travis, PhD, FACMG Marisela Christensen, PhD, FACMG Dionne Kay M.S., PhD, FACMG Connie Hurst, PhD, FACMG Amol Martinez, PhD, FACMG Robert Alexandre, PhD, FACMG Specimen Blood - Arm, left Narrative Performed At Performed at: 01 - [facility] [address] [place], [place] [id number] Electronic Tester: Gloria Martinez MD, Phone: [phone] Performing Organization Address [facility] one Number [facility] [address] [place] [address] * Iron Profile (11/29/2018 10:16 AM CDT) Iron 184 50 - 212 ug/dL [facility] TIBC 253 250 - 450 ug/dL [facility] % Iron Sat 73 % [facility] Transferrin 180.95 (L) 203.00 - 362.00 [facility] mg/dL [facility]ORATORY Specimen Blood Performing Organization Address [facility] one Number [facility] [address] [place] [address] [phone] * Urea Nitrogen/Creatinine (11/29/2018 10:16 AM CDT) Urea Nitrogen 10.0 7.0 - 25.0 mg/dL [facility] Creatinine 1.3 (H) 0.6 - 1.2 mg/dL [facility] GFR, Estimated 41 (L) >=90 mL/min/1.73 m2 [facility] Specimen Blood Performing Organization Address [facility] one Number [facility] [address] [place] [address] [phone] after 11/19/2018 Insurance Type Payer Benefit Subscriber ID Effective Phone Address Plan / Dates Group [facility] SELF-PAY SELF-PAY xxxxxxx 2018-8 [phone] [place] [address] Diane Franklin Personal/F Self 1955 [phone] (Home) [address] [place] [address] Advance Directives Patient It Administrative Assistant Explanation Type Date Recorded Medical Power Of Leaf Blender{} Power of Leaf Blender 11/28/2016 10:52 AM Date Inactivated Comments Code Status Date Activated 04/18/2018 7:05 PM Full Code 04/10/2018 9:40 AM
--- OUTSIDE RECORDS SUMMARY | 2019-11-20 10:58 | XMS REPORT | Continuity of Care Document ---
Author Author [facility] t Organization [facility] t Address [address] [place] [address] Phone Unavailable Care Team Providers Care Visual Presentation Manager Name Role Phone NO, PCP PCP Unavailable Iram CNC MANAGER, Dahiana Attphys [phone] Vincent RN, Brittni Burnett Attphys Unavailable Jorge FERGUSON, Krystian Rice Attphys Unavailable Naomi FERGUSON, Estefany Attphys Unavailable David ORANTES, Elisha Bruner Attphys Kerry ORANTES, Carolyn Attphys Carmela ORANTES, P Marlene Attphys Josh FERGUSON, Sheron Attphys Unavailable Micah Fellow(), P Jp Attphys Leah Fellow(), Casandra Attphys Satish ORANTES, Elizabeth Attphys Navid ORANTES, Ryne Attphys [phone] Anthony ORANTES, Mart Attphys Jyoit ORANTES, Fátima Villafuerte Attphys [phone] Leah Fellow(), Desi Attphys ORLANDO STEWART Attphys Unavailable Kary FERGUSON, Sincere Callejas Attphys Unavaila miquel Arroyo CNC MANAGER, G Mallika Attphys Gagandeep ORANTES, P Marely Attphys Tim RN, Pankaj Rogers Attphys Unavailable Darrel ZAMANN, Vidhya Nelia Attphys Unavailable Geoffrey Schmidt MD, A Myla Attphys [phone] Shaggy ORANTES, Zina Attphys Markos ORANTES, Cachorro Attphys Ramin FERGUSON, F Carol Attphys Unavailable iGlberto ORANTES, N Franc Attphys Deisy Ya Attphys Unavailable Mickey [facility], M Aniyah Attphys Unavailable Jessica FERGUSON, Francis Claire Attphys Unainna Stoddard, Zuly Attphys Unavailable Dwayne Fellow(), O Marcela Attphys [phone] Samuel ORANTES, Noreen Cornelius Attphys Alli ZAMANN, Campos Attphys Unavailable Payers Payer Name Policy Type Policy Number Effective Date Expiration Date [id number] [id number]/-11/24/[id number] [place] [address] xxxxxxx 2018 00:00:00 2019 2 3:59:59 [facility] Condition Name Condition Details Condition Category Status Onset Date Resolution Date Last Treatment Date Treating Clinician Comments Source MDS (myelodysplastic syndrome) MDS (myelodysplastic syndrome) Disea se Active 2019-03-10 00:00:00 [facility] Iron overload likely 2/2 hemochromocytos is - o/w eval for for myelodysplasia, liver dz, - LESS LIKELY thallasemia, hemalytic anemia, Iron overload likely 2/2 hemochromocytosis - o/w eval for for myelodysplasia, liver dz, - LESS LIKELY thallasemia, hemalytic anemia, Disease Active 2018-11-30 00:00:00 [facility] Lung nodule Lung nodule Disease Active 2018-11-29 00:00:00 [facility] Splenomegaly Splenomegaly Disease Active 2018-10-24 00:00:00 [facility] Tracheal deviation - pt initially declin ed CT scan due to cost - now agrees to eval - given worsening dyspnea, tachypnea, tachycardia, ? post-obstructive PNA sx - ER referral for urgent evaluation Tracheal deviation - pt initially declined CT scan due to cost - now agrees to eval - given worsening dyspnea, tachypnea, tachycardia, ? post-obstructive PNA sx - ER referral for urgent evaluation Disease Active 2018-10-18 00:00:[address] [facility] Decreased breath sounds Decreased breath sounds Disease Active 2018-10-16 00:00:00 [facility] Assistance needed with transportation Assistance needed with transportation Disease Active 2018-10-16 00:00:00 [facility] Chronic kidney disease Chronic kidney disease Disease Active 2018-10-16 00:00:00 [facility] Lower extremity edema Lower extremity edema Disease Active 201 11-25-15 00:00:00 [facility] History of compression fracture of vertebral column Hi story of compression fracture of vertebral column Disease Active 2018-03-30 00:00:00 [facility] COPD with acute exacerbation COPD with acute exacerbation Disease Active 2018-01-30 00:00:00 [facility] On home oxygen therapy - pt declines CT of chest and V/Q Scan due to cost despite understanding potential PNA / PE On home oxygen therapy - pt declines CT of chest and V/Q Scan due to cost despite understanding potential PNA / PE Disease Active 2018-01-21 00:00:00 [facility] Gastroesophageal reflux disease without esophagitis Ga stroesophageal reflux disease without esophagitis Disease Active 2017-09-05 00:00:00 [facility] Former heavy tobacco smoker Former heavy tobacco smoker Disease Active 2016-10-26 00:00:00 [facility] Hyponatremia Problem Active [facility] Urinary tract infection Problem Active [facility] Weakness Problem Active [facility] Vomiting and diarrhea Vomiting and diarrhea Disease Active [facility] Anemia Anemia Disease Active [facility] Vitamin D insufficiency Vitamin D insufficiency Disease Active [facility] Clavicle fracture Clavicle fracture Disease Active [facility] Chronic midline low back pain Chronic midline low back pain Disease Active [facility] Impaired mobility and activities of daily living Impai red mobility and activities of daily living Disease Active [facility] Hypoxemia Hypoxemia Disease Active [facility] Shortness of breath Shortness of breath Disease Active [facility] Anxiety Anxiety Disease Active [facility] Allergies, Adverse Reactions, Alerts Allergy Name Allergy Type Status Severity Reaction(s) Onset Date Inacti ve Date Treating Clinician Comments Source Phenazopyridine Propensity to adverse reactions to drug Active Itching 2019-10-14 00:00:00 [facility] Lisinopril Allergy to substance Active Moderate 2019-09-29 00:00:0 0 [facility] Hydroxyzine Allergy to substance Active Moderate 2019-09-29 00:00: 00 [facility] Benzonatate Allergy to substance Active Moderate 2019-09-29 00:00: 00 [facility] Hydrochlorothiazide Allergy to substance Active Moderate 2019-09-29 00:00:00 [facility] Ciprofloxacin Allergy to substance Active Moderate 2019-09-29 00:0 0:00 [facility] Promethazine Allergy to substance Active Moderate 2019-09-29 00:00 :00 [facility] Bupropion Allergy to substance Active Moderate 2019-09-29 00:00:00 [facility] Atorvastatin Allergy to substance Active Moderate 2019-09-29 00:00 :00 [facility] Hydroxyzine Pamoate Propensity to adverse reactions to drug Active 2017-01-13 00:00:00 [facility]iel Benzonatate Propensity to adverse reactions to drug Active Rash, Itching 2016-10-25 00:00:00 [facility] Ciprofloxacin Propensity to adverse reactions to drug Active Rash, Itching 2016-10-25 00:00:00 [facility] daniel Chlorpheniramine-Acetaminophen Propensity to adverse reactions to d rug Active Rash 2016-10-25 00:00:00 [facility] Hydrochlorothiazide Propensity to adverse reactions to drug Active 2016-10-25 00:00:00 Was told it was causing her pancreatitis [facility] Hydroxyzine Propensity to adverse reactions to drug Active Rash, Itching 2016-10-25 00:00:00 [facility] Atorvastatin Propensity to adverse reactions to drug Active 2016-10-25 00:00:00 Lowers WBC [facility] Lisinopril Propensity to adverse reactions to drug Active 2016-10-25 00:00:00 Causes pancreatitis [facility] Nicotine Propensity to adverse reactions to drug Active Hives, Rash 2016-10-25 00:00:00 patches [facility] Promethazine Propensity to adverse reactions to drug Active Hives, Itching 2016-10-25 00:00:00 [facility] Pravastatin Propensity to adverse reactions to drug Active 2016-10-25 00:00:00 Lowers WBC [facility] Bupropion Propensity to adverse reactions to drug Active Hallucinations 2016-10-25 00:00:00 [facility] Levocetirizine Propensity to adverse reactions to drug Active Hives, Itching 2016-10-25 00:00[facility] DA Active PR 2016-10-05 00:00:00 [facility] Pentazocine Lactate DA Active PR 2016-10-05 00:00:00 [facility] ciprofloxacin HCl DA Active PR 2016-10-05 00:00:00 [facility] atorvastatin calcium DA Active MO 2016-10-05 00:00:00 [facility] nicotine DA Active MO 2016-10-05 00:00:00 [facility] hydrochlorothiazide DA Active U 2016-10-05 00:00:00 [facility] ciprofloxacin DA Active PR 2016-10-05 00:00:00 [facility] atorvastatin DA Active PR 2016-10-05 00:00:00 [facility] Family History Family Member Diagnosis Comments Start Date Stop Date Source Natural father Heart [facility] Natural father Heart attack [facility] Maternal grandmother [facility] Natural mother Cancer [facility] Natural mother Heart [facility] Social History Social Habit Start Date Stop Date Quantity Comments Source History SDOH Alcohol Std Drinks [facility] History SDOH Alcohol Binge [facility] Sex Assigned At [facility] Exposure to SARS-CoV-2 (event) Not sure [facility] Cigarettes smoked current (pack per day) - Reported 00:00:00 2019-10-24 00:00:00 [facility] Cigarette pack-years 2019-10-24 00:00:00 2019-10-24 00:00:00 [facility] Alcohol intake 2019-10-24 00:00:00 2019-10-24 00:00:00 Current drinker of alcohol (finding) [facility] Tobacco Comment 2018-10-25 00:00:00 2018-10-25 00:00:00 quit 4 years ago [facility] History SDOH Alcohol Frequency 2018-04-10 00:00:00 2018-04-10 00:00:0 0 3 [facility] History SDOH Food Worry 2018-01-30 00:00:00 2018-01-30 00:00:00 1 [facility] History SDOH Food Scarcity 2018-01-30 00:00:00 2018-01-30 00:00:00 1 [facility] Smoking Status Start Date Stop Date Source Former smoker 2019-10-24 00:00:00 2019-10-24 00:00:00 [facility] Medications Ordered Medication Name Filled Medication Name Start Date Stop Da te Current Medication? Ordering Clinician Indication Dosage Frequency Signature (SIG) Comments Components Source escitalopram (LEXAPRO) 10 mg tablet 2019-11-18 00:00:00 Yes Anxiety 10mg QD Take 1 tablet by mouth daily. [facility] omeprazole (PRILOSEC) 20 mg delayed release capsule 11-16 00:00:00 Yes Gastroesophageal reflux disease without esophagitis 20mg QD Take 1 capsule by mouth daily Omeprazole can cause bone weakness. [facility] dicyclomine (BENTYL) 10 mg capsule 2019-11-17 00:00:00 Yes Vomiting and diarrhea 10mg Take 1 capsule by mo [facility] 4 times daily (before meals and nightly). [facility] valsartan (DIOVAN) 40 mg tablet 2019-10-24 00:00:00 Yes Elevated blood pressure reading 40mg QD Take 1 tablet by mouth daily. [facility] nitrofurantoin mono/m-crystals (MACROBID) 100 mg capsule 2019-10-14 00:00:00 Yes Dysuria 100mg Q.5D Take 1 capsule by mouth 2 times daily. [facility] terconazole (TERAZOL 7) 0.4 % vaginal cream 2019 00:00:00 2019-10-21 23:59:00 No Vaginal itching Insert 1 applicatorful vaginally every night at bedtime for 7 days.. [facility] gabapentin (NEURONTIN) 300 mg capsule 2019-10-10 00:00:00 Yes Chronic midline low back pain 600mg Take 2 capsules by mouth 3 times daily Until September. [facility] doxepin (SINEQUAN) 25 mg capsule 2019-10-10 00:00:00 Yes Insomnia, unspecified type 25mg Take 1 capsule by mouth every evening. [facility] dicyclomine (BENTYL) 10 mg capsule 2019-10-10 00:00:00 202 00:00:00 No Vomiting and diarrhea 10mg Take 1 cap daphnie by mouth 4 times daily (before meals and nightly). [facility] ondansetron (ZOFRAN) 8 mg tablet 2019-10-01 00:00:00 Yes MDS (myelodysplastic syndrome) 8mg Take 1 tablet by mouth every 8 hours as needed for Nausea. [facility] BOOST oral liquid 2019-10-01 00:00:00 Yes MD S (myelodysplastic syndrome) 1{package} Take 1 Package by mouth 3 times daily. [facility] furosemide (LASIX) 20 mg tablet 2019-09-23 00:00:00 00:00:00 No Lower extremity edema 20mg Q.5D Take 1 tablet by mouth 2 times daily . [facility] metoprolol succinate (TOPROL XL) 50 mg extended release tabl et 2019-09-16 00:00:00 Yes Essential hypertension TAKE ONE (1) TABLET(S) BY MOUTH DAILY. [facility] prazosin (MINIPRESS) 2 mg capsule 2019-09-09 00:00:00 Yes Anxiety with depression 2mg Take 1 capsule by mouth at bedtime nightly. [facility] darbepoetin russ in polysorbate (ARANESP) injection 200 mcg 2019-09-08 09:00:00 2019-08-25 16:46:47 No 200ug Q14D [facility] darbepoetin russ in polysorbate (ARANESP) injection 300 mcg 2019-09-08 00:00:00 2019-11-30 23:59:00 Yes 300ug [facility] Cyclobenzaprine (FLEXERIL) 5 mg tablet 2019-07- 7 00:00:00 2020-08-19 23:59:00 No Chronic midline low back pain 5mg Take 1 tablet by mouth nightly at bedtime as needed for Muscle Spasms. [facility] darbepoetin russ in polysorbate (ARANESP) injection 200 mcg 2019-08-18 09:00:00 2019-07-28 17:20:19 No 200ug Q14D [facility] gabapentin (NEURONTIN) 300 mg capsule 2019-08-14 00:00 :00 2019-10-10 00:00:00 No Chronic midline low back pain 600mg Take 2 capsules by mouth 3 times daily Until September. [facility] dicyclomine (BENTYL) 10 mg capsule 2019-08-08 00:00:00 00:00:00 No Vomiting and diarrhea 10mg Take 1 cap daphnie by mouth 4 times daily (before meals and nightly). [facility] OLANZapine (ZYPREXA) 5 mg tablet 2019-08-04 00:00:00 Yes Anxiety with depression 5mg Take 1 tablet by mouth at bedtime nightly. [facility] traMADoL (ULTRAM) 50 mg tablet 2019-07-31 00:00:00 Yes Chronic left-sided low back pain with left-sided sciatica 50mg T denia 1 tablet by mouth every 12 hours as needed for Pain. [facility] ibuprofen (MOTRIN) 800 mg tablet 2019-07-22 00:00:00 Yes Chronic midline low back pain 800mg Take 1 tablet by mouth every 8 h ours as needed for Pain. [facility] Cyclobenzaprine (FLEXERIL) 5 mg tablet 2019-06-26 8 00:00:00 2019-08-20 00:00:00 No Chronic midline low back pain 5mg Take 1 tablet by mouth nightly at bedtime as needed for Muscle Spasms. [facility] DULoxetine (CYMBALTA) 60 mg delayed release capsule 2019-07-16 00:00:00 2019-10-24 00:00:00 No 60mg Q.5D Take 1 capsule by [facility] 2 times daily. [facility] darbepoetin russ in polysorbate (ARANESP) injection 200 mcg 2019-07-14 09:00:00 2019-08-25 11:58:00 No 200ug Q14D [facility] montelukast (SINGULAIR) 10 mg tablet 2019-07-08 00:00:00 Yes COPD without exacerbation 10mg Take 1 tablet by mouth at bedtime nightly. [facility] gabapentin (NEURONTIN) 300 mg capsule 2019-07-08 00:00 :00 2019-08-14 00:00:00 No Chronic midline low back pain 600mg Take 2 capsules by mouth 3 times daily Until September. [facility] doxepin (SINEQUAN) 25 mg capsule 2019-07-07 00:00:00 2019-09 00:00:00 No Insomnia, unspecified type 25mg Take 1 capsule by mouth every e vening. [facility] furosemide (LASIX) 20 mg tablet 2019-07-07 00:00:00 00:00:00 No Lower extremity edema 20mg Q.5D Take 1 tablet by mouth 2 times daily . [facility] darbepoetin russ in polysorbate (ARANESP) injection 200 mcg 2019-07-03 00:00:00 2019-07-03 14:05:00 No 200ug [facility] darbepoetin russ in polysorbate (ARANESP) injection 200 mcg 2019-07-01 09:00:00 2019-08-25 16:46:54 No 200ug Q14D [facility] ibuprofen (MOTRIN) 800 mg tablet 2019-06-30 00:00:00 2019-06 00:00:00 No Chronic midline low back pain 800mg Take 1 tab let by mouth every 8 hours as needed for Pain. [facility] metoprolol succinate (TOPROL XL) 50 mg extended release tabl et 2019-06-23 00:00:00 Yes Essential hypertension TAKE ONE (1) TABLET(S) BY MOUTH DAILY.. [facility] traMADoL (ULTRAM) 50 mg tablet 2019-06-12 00:00:00 7 00:00:00 No Chronic left-sided low back pain with left-sided sciatica 50mg Take 1 tablet by mouth every 12 hours as needed for Pain. [facility] prazosin (MINIPRESS) 2 mg capsule 2019-06-09 00:00:00 2019 00:00:00 No Anxiety with depression 2mg Take 1 capsule by mouth at bedtime nightly. [facility] dicyclomine (BENTYL) 10 mg capsule 2019-06-04 00:00:00 202 00:00:00 No Vomiting and diarrhea 10mg Take 1 cap daphnie by mouth 4 times daily (before meals and nightly). [facility] gabapentin (NEURONTIN) 300 mg capsule 2019-06-04 00:00 :00 2019-07-06 00:00:00 No Chronic midline low back pain 600mg Take 2 capsules by mouth 3 times daily Until September appointment. [facility] omeprazole (PRILOSEC) 20 mg delayed release capsule 2019-05-13 00:00:00 2019-11-13 00:00:00 No Gastroesophageal reflux dise ase without esophagitis 20mg QD Take 1 capsule by mouth daily Omeprazole can cause bon e weakness. [facility] darbepoetin russ in polysorbate (ARANESP) injection 200 mcg 2019-05-05 16:15:00 2019-06-16 10:21:00 No 200ug Q14D [facility] gabapentin (NEURONTIN) 300 mg capsule 2019-04-29 00:00 :00 2019-06-01 00:00:00 No Chronic midline low back pain 600mg Take 2 capsules by mouth 3 times daily Until September appointment. [facility] furosemide (LASIX) 20 mg tablet 2019-04-24 00:00:00 00:00:00 No Lower extremity edema 20mg Q.5D Take 1 tablet by mouth 2 times daily . [facility] OLANZapine (ZYPREXA) 5 mg tablet 2019-04-08 00:00:00 2019-07 00:00:00 No Anxiety with depression 5mg Take 1 tablet by mouth at bedtime nightly. [facility] albuterol (PROVENTIL) 2.5 mg /3 mL (0.083 %) nebulizer solut ion 2019-04-07 00:00:00 Yes Chronic obstructive pulmonar y disease with acute exacerbation 2.5mg Inhale 3 mL by mouth every 6 hours as needed for Wheez ing. [facility] ipratropium (ATROVENT) 0.02 % nebulizer solution 2019-04-07 00:00:00 Yes Chronic obstructive pulmonary disease with acute exacerbation .5mg Inhale 2.5 mL by mouth 4 times daily. [facility] dicyclomine (BENTYL) 10 mg capsule 2019-03-25 00:00:00 202 00:00:00 No Vomiting and diarrhea 10mg Take 1 cap daphnie by mouth 4 times daily (before meals and nightly). [facility] gabapentin (NEURONTIN) 300 mg capsule 2019-03-25 00:00 :00 2019-04-27 00:00:00 No Chronic midline low back pain 600mg Take 2 capsules by mouth 3 times daily Until September appointment. [facility] darbepoetin russ in polysorbate (ARANESP) injection 60 mcg 2019-03-10 16:15:00 2019-05-05 15:36:47 No 60ug [facility] traMADol (ULTRAM) 50 mg tablet 2019-03-06 00:00:00 2019-05-25 00:00:00 No Chronic left-sided low back pain with left-sided sciatica 50mg Take 1 tablet by mouth every 12 hours as needed for Pain. [facility] metoprolol succinate (TOPROL XL) 50 mg extended release tabl et 2019-03-03 00:00:00 2019-09-16 00:00:00 No Essential hypertension TAKE ONE (1) TABLET(S) BY MOUTH DAILY. [facility] metoprolol succinate (TOPROL XL) 50 mg extended release tabl et 2019-02-26 00:00:00 2019-06-23 00:00:00 No Essential hypertension TAKE ONE (1) TABLET(S) BY MOUTH DAILY. [facility] gabapentin (NEURONTIN) 300 mg capsule 2019-02-23 00:00 :00 2019-03-24 00:00:00 No Chronic midline low back pain 600mg Take 2 capsules by mouth 3 times daily Until September appointment. [facility] ibuprofen (MOTRIN) 800 mg tablet 2019-02-15 00:00:00 2019-06 00:00:00 No Chronic midline low back pain 800mg Take 1 tab let by mouth every 8 hours as needed for Pain. [facility] diphenhydrAMINE (BENADRYL) capsule 25 mg 2019-01 08:56:32 2019-03-06 08:55:32 No Macrocytic anemia 25mg [facility] darbepoetin russ in polysorbate (ARANESP) injection 60 mcg 2019-02-03 15:00:00 2019-02-03 15:15:00 No 60ug [facility] darbepoetin russ in polysorbate (ARANESP) 60 mcg/0.3 mL inje ction 2019-02-03 00:00:00 2019-02-03 00:00:00 No Macrocytic anemia 60ug Inject 0.3 mL under the skin once for 1 dose. [facility] furosemide (LASIX) 20 mg tablet 2019-01-28 00:00:00 00:00:00 No Lower extremity edema 20mg Q.5D Take 1 tablet by mouth 2 times daily . [facility] dicyclomine (BENTYL) 10 mg capsule 2019-01-20 00:00:00 201 12-05-29 00:00:00 No Vomiting and diarrhea 10mg Take 1 cap daphnie by mouth 4 times daily (before meals and nightly). [facility] gabapentin (NEURONTIN) 300 mg capsule 2019-01-20 00:00 :00 2019-02-19 00:00:00 No Chronic midline low back pain 600mg Take 2 capsules by mouth 3 times daily Until September appointment. [facility] alendronate (FOSAMAX) 70 mg tablet 2018-12-10 00:00:00 Yes Osteoporosis, unspecified osteoporosis type, unspecified pathological fracture presence 70mg Take 1 tablet by mouth weekly Take 1 tab let once a week on empty stomach with 8 oz of water and remain upright for 30 minutes. [facility] DULoxetine (CYMBALTA) 60 mg delayed release capsule 2018-12-10 00:00:00 2019-07-16 00:00:00 No Anxiety with depression 60mg QD Take 1 capsule by mouth daily. [facility] doxepin (SINEQUAN) 25 mg capsule 2018-12-10 00:00:00 2019-06 00:00:00 No Insomnia, unspecified type 25mg Take 1 capsule by mouth every e vening. [facility] prazosin (MINIPRESS) 2 mg capsule 2018-12-10 00:00:00 2019 00:00:00 No Anxiety with depression 2mg Take 1 capsule by mouth at bedtime nightly. [facility] OLANZapine (ZYPREXA) 5 mg tablet 2018-12-10 00:00:00 2019-03 00:00:00 No Anxiety with depression 5mg Take 1 tablet by mouth at bedtime nightly. [facility] gabapentin (NEURONTIN) 300 mg capsule 2018-12-10 00:00 :00 2019-01-15 00:00:00 No Chronic midline low back pain, with sciatica presence unspecified 600mg Take 2 capsules by mouth 3 times daily Until Kristen appointment. [facility] metoprolol succinate (TOPROL XL) 50 mg extended release tabl et 2018-12-02 00:00:00 2019-02-26 00:00:00 No Essential hypertension TAKE ONE (1) TABLET(S) BY MOUTH DAILY. [facility] montelukast (SINGULAIR) 10 mg tablet 2018-11-29 00:00: 00 2019-07-05 00:00:00 No COPD without exacerbation 10mg Ta ke 1 tablet by mouth at bedtime nightly. [facility] traMADol (ULTRAM) 50 mg tablet 2018-11-29 00:00:00 2019-02-23 2 00:00:00 No Chronic left-sided low back pain with left-sided sciatica 50mg Take 1 tablet by mouth every 12 hours as needed for Pain. [facility] gabapentin (NEURONTIN) 300 mg capsule 2018-11-12 00:00 :00 2018-12-10 00:00:00 No Chronic midline low back pain, with sciatica presence unspecified 600mg Take 2 capsules by mouth 3 times daily Until September. [facility] omeprazole (PRILOSEC) 20 mg delayed release capsule 2018-11-04 00:00:00 2019-05-10 00:00:00 No Gastroesophageal reflux dise ase without esophagitis 20mg QD Take 1 capsule by mouth daily Omeprazole can cause bon e weakness. [facility] ibuprofen (MOTRIN) 800 mg tablet 2018-10-28 00:00:00 2019-01 00:00:00 No Chronic midline low back pain, with sciatica presence unspecified 800mg Take 1 tablet by mouth every 8 hours as needed for Pain. [facility] furosemide (LASIX) 20 mg tablet 2018-10-28 00:00:00 00:00:00 No Lower extremity edema 20mg Q.5D Take 1 tablet by mouth 2 times daily . [facility] traMADol (ULTRAM) 50 mg tablet 2018-10-28 00:00:00 6 00:00:00 No Chronic left-sided low back pain with left-sided sciatica 50mg Take 1 tablet by mouth every 12 hours as needed for Pain. [facility] MULTIVITAMIN WITH MINERALS (MULTIVITAMIN & MINERAL FORMULA O R) 2018-10-26 18:37:01 Yes QD Take by mouth daily. [facility] Glucosamine 1,000 mg Tab 2018-10-26 18:37:01 Yes QD Take by mouth daily. [facility] [facility] NGYKENI-CLKKZVZGJ-DNAS OR 2018-10-26 18:37:01 Yes Take by mouth. [facility] metoprolol succinate (TOPROL XL) 50 mg extended release tabl et 2018-09-06 00:00:00 2018-12-01 00:00:00 No Essential hypertension TAKE ONE (1) TABLET(S) BY MOUTH DAILY. [facility] DULoxetine (CYMBALTA) 60 mg delayed release capsule 2018-07-30 00:00:00 2018-12-10 00:00:00 No Anxiety with depression 60mg QD Take 1 capsule by mouth daily. [facility] OLANZapine (ZYPREXA) 5 mg tablet 2018-07-30 00:00:00 2018-11 00:00:00 No Anxiety with depression 5mg Take 1 tablet by mouth at bedtime nightly. [facility] doxepin (SINEQUAN) 25 mg capsule 2018-07-01 00:00:00 2018-11 00:00:00 No Insomnia, unspecified type 25mg Take 1 capsule by mouth every e vening. [facility] prazosin (MINIPRESS) 2 mg capsule 2018-06-02 00:00:00 2018 00:00:00 No Anxiety with depression 2mg Take 1 capsule by mouth at bedtime nightly. [facility] dicyclomine (BENTYL) 10 mg capsule 2018-05-02 00:00:00 201 12-04-23 00:00:00 No Vomiting and diarrhea 10mg Take 1 cap daphnie by mouth 4 times daily (before meals and nightly). [facility] Nebulizer & Compressor For Neb Lolita 2018-04-04 00:00:00 Yes Chronic obstructive pulmonary disease with acute exacerbation 1{device} 1 Device by Misc.(Non-Drug; Combo Route) route 4 times daily. [facility] mometasone-formoterol (DULERA) 200-5 mcg/actuation inhaler 2018-04-04 00:00:00 Yes Chronic obstructive pulmonary diseas e with acute exacerbation 2{puff} Q.5D Inhale 2 Puffs by mouth every 12 hours. [facility] albuterol (PROVENTIL) 2.5 mg /3 mL (0.083 %) nebulizer solut ion 2018-04-04 00:00:00 2019-04-05 00:00:00 No Chronic obst ructive pulmonary disease with acute exacerbation 2.5mg Inhale 3 mL by mouth every 6 hours as needed for Wheezing. [facility] ipratropium (ATROVENT) 0.02 % nebulizer solution 2018-04-04 00:00:00 2019-04-05 00:00:00 No Chronic obstructive pulmonary disease with acute exacerbation .5mg Inhale 2.5 mL by mouth 4 times daily. [facility] montelukast (SINGULAIR) 10 mg tablet 2018-04-04 00:00: 00 2018-11-29 00:00:00 No Wheeze 10mg Take 1 tablet by mouth at bedtime nightl y. [facility] polyethylene glycol (GOLYTELY) 236-22.74-6.74 -5.86 gram ora l solution 2018-01-30 00:00:00 Yes Anemia, unspecified type Add lukewarm drinking water to the fill jose (4 liters) and shake. Drink as directed by your doctor. [facility] ergocalciferol (VITAMIN D2) 50,000 unit capsule 2018-01-23 0 0:00:00 Yes Vitamin D insufficiency 64827G Take 1 capsule b y mouth weekly For 3 months and then buy vitamin D3: 2000 units and take 1 tablet/day. [facility] alendronate (FOSAMAX) 70 mg tablet 2017-10-08 00:00:00 201 12-02-16 00:00:00 No Osteoporosis, unspecified osteoporosis t ype, unspecified pathological fracture presence 70mg Take 1 tablet by aristeo th weekly Take 1 tablet once a week on empty stomach with 8 oz of water and remain upright for 30 minutes. [facility] ciclesonide (ZETONNA) 37 mcg/actuation nasal HFA inhaler 2017-04-25 00:00:00 Yes Acute non-seasonal allergic rhinitis, unspecifi ed trigger 1{spray} QD Use 1 [place] in each nostril daily. [facility] alth Immunizations Ordered Immunization Name Filled Immunization Name Date Status Comments Source Tdap (Tetanus Toxoid, Reduced Diphtheria Toxoid And Acellular Pertussis, Absorbed) 2018-12-10 00:00:00 Completed [facility] ealt Influenza <Unspecified> 2018-01-17 00:00:00 Completed [facility] Influenza Vaccine, Seasonal, Injectable 2017-04-25 00:00:0 0 Completed [facility] PNEUMOCOCCAL 23-VALPS VACCINE 25 MCG/0.5 ML INJECTION 2016-10-25 00:00:00 Completed [facility] Vital Signs Vital Name Observation Time Observation Value Comments Source Systolic blood pressure 2019-11-17 18:34:00 158 mm[Hg] [facility] Diastolic blood pressure 2019-11-17 18:34:00 82 mm[Hg] [facility] Heart rate 2019-11-17 18:34:00 91 /min [facility] Body temperature 2019-11-17 18:34:00 36.67 [facility] Respiratory rate 2019-11-17 18:34:00 20 /min [facility] Oxygen saturation in Arterial blood by Pulse oximetry 11-16 18:34:00 94 /min [facility] Body height 2019-10-24 08:14:00 165.1 cm [facility] Body weight 2019-10-24 08:14:00 61.236 kg [facility] BMI 2019-10-24 08:14:00 22.47 kg/m2 [facility] Weight 2019-09-29 21:23:00 165 [lb_av] [facility] BMI (Body Mass Index) 2019-09-29 21:23:00 26.6 kg/m2 [facility] Procedures Procedure Date / Time Performed Performing Clinician Sourc e CBC/DIFF 2019-11-10 09:27:00 [facility] 2019-11-10 09:27:00 Joppa Vincentbehzad [facility] DIFFERENTIAL, MANUAL 2019-11-10 09:27:00 [facility] K[facility] FOR SPECIMEN COLLECTION AT HOME 2019-11-07 09: 02:00 Iram [facility] U/S RENAL 2019-10-28 13:45:07 Iram [facility] CBC/DIFF 2019-10-24 09:55:00 Iram [facility] COMPREHENSIVE METABOLIC PANEL 2019-10-24 09:55:00 Iram [facility] CBC 2019-10-24 09:55:00 Iram [facility] DIFFERENTIAL, MANUAL-WAM 2019-10-24 09:55:00 Amanda Walden [facility] CBC/DIFF 2019-10-20 14:52:00 Mallika Arroyo [facility] SAVE SMEAR/ NOT FOR PATH REVIEW 2019-10-20 14:52:00 Matthew Arroyo [facility] CBC 2019-10-20 14:52:00 Mallika Arroyo [facility] DIFFERENTIAL, MANUAL 2019-10-20 14:52:00 [facility] TRANSFUSE (RED CELL UNITS - NURSING) 2019-10-17 04:21:32 Nanette Zhang [facility] TROPONIN I POC 2019-10-17 03:44:00 Elizabeth German [facility] ECHG EKG PROC 12 LEAD EKG; TRACING ONLY 2019-10-17 03:27:39 Bari Zhang [facility] TRANSFUSE (RED CELL UNITS - NURSING) 2019-10-17 00:59:57 Nanette Zhang [facility] TROPONIN I POC 2019-10-16 23:30:00 [facility] CORONAVIRUS, COVID-19, LUCIA 2019-10-16 19:29:00 [facility] TROPONIN I POC 2019-10-16 19:02:00 Alon Germanah [facility] ECHG EKG PROC 12 LEAD EKG; TRACING ONLY 2019-10-16 18:57:46 [facility] XRAY CHEST 2 VIEWS 2019-10-16 18:27:22 Bari Zhang alth BASIC METABOLIC PANEL 2019-10-16 18:01:00 Bari Zhang [facility] LIVER PROFILE 2019-10-16 18:01:00 Bari Zhang h AMMONIA 2019-10-16 18:01:00 Bari Zhang TYPE AND SCREEN 2019-10-16 17:45:00 Marija Guerrero alth T&S - COLLECTION 2019-10-16 17:45:00 Marija Guerrero [facility] RBC UNITS 2019-10-16 17:45:00 Bari Zhang CREATININE POC 2019-10-16 14:23:00 Navid [facility] BMP POC 2019-10-16 14:19[facility]FF 2019-10-16 13:56:00 Navid [facility] CBC 2019-10-16 13:56:00 Odilonrapu, [facility] URINE CULTURE 2019-10-16 13:56:00 Eugeniopu, [facility] URINALYSIS 2019-10-16 13:53:00 Odilonrapu, [facility] URINALYSIS 2019-10-16 13:53:00 Odilonrapu, [facility] URINALYSIS MICROSCOPIC-REFLEX 2019-10-16 13:53:00 Eugeniopu, In wei [facility] BASIC METABOLIC PANEL 2019-09-29 10:02:00 CoonZina [facility] FERRITIN 2019-09-29 10:02:00 Shaggy Zina [facility] CBC/DIFF 2019-09-29 10:01:00 Mallika Arroyo Leo [facility] CBC 2019-09-29 10:01:00 Mallika Arroyo [facility] Computed tomography of brain without radiopaque contrast 2019-09 00:00:00 [facility] CBC/DIFF 2019-09-08 09:37:00 Leah Tristanelham [facility] COMPREHENSIVE METABOLIC PANEL 2019-09-08 09:37:00 Sun Desi [facility] CBC 2019-09-08 09:37:00 Leah Tristanelham [facility] FERRITIN 2019-09-08 09:37:00 Sun Desi [facility] CBC/DIFF 2019-08-25 11:36:00 Sun Desi [facility] COMPREHENSIVE METABOLIC PANEL 2019-08-25 11:36:00 Sun Desi [facility] CBC 2019-08-25 11:36:00 [facility] DIFFERENTIAL, MANUAL 2019-08-25 11:36:00 Sun Desi [facility] CBC/DIFF 2019-08-11 10:26:00 [facility] COMPREHENSIVE METABOLIC PANEL 2019-08-11 10:26:00 Sun Desi [facility] CBC 2019-08-11 10:26:00 Sun Desi [facility] COMPREHENSIVE METABOLIC PANEL 2019-07-28 15:16:00 Sun Desi [facility] CBC/DIFF 2019-07-28 15:16:00 Sun Desi [facility] CBC 2019-07-28 15:16:00 [facility] CBC/DIFF 2019-07-14 09:54:00 [facility] COMPREHENSIVE METABOLIC PANEL 2019-07-14 09:54:00 [facility] CBC 2019-07-14 09:54:00 [facility] CBC/DIFF 2019-06-30 11:19:00 [facility] COMPREHENSIVE METABOLIC PANEL 2019-06-30 11:19:00 [facility] CBC 2019-06-30 11:19:00 [facility] FERRITIN 2019-06-30 11:19:00 [facility] CBC/DIFF 2019-05-05 13:04:00 [facility] CBC 2019-05-05 13:04:00 [facility] COMPREHENSIVE METABOLIC PANEL 2019-05-05 13:03:00 [facility] FERRITIN 2019-05-05 13:03:00 [facility] CBC/DIFF 2019-04-07 10:12:00 [facility] COMPREHENSIVE METABOLIC PANEL 2019-04-07 10:12:00 [facility] CBC 2019-04-07 10:12:00 [facility] TYPE AND SCREEN 2019-03-17 08:36:00 Pasquale Reeves h T&S - COLLECTION 2019-03-17 08:36:00 [facility] RBC UNITS 2019-03-17 08:36:00 [facility] CBC/DIFF 2019-03-17 07:47:00 [facility] COMPREHENSIVE METABOLIC PANEL 2019-03-17 07:47:00 [facility] CBC 2019-03-17 07:47:00 [facility] DIFFERENTIAL, MANUAL-WAM 2019-03-17 07:47:00 SunDesi [facility] FERRITIN 2019-03-10 14:40:00 [facility] CBC/DIFF 2019-03-10 14:40:00 [facility] COMPREHENSIVE METABOLIC PANEL 2019-03-10 14:40:00 Desi Lynn [facility] CBC 2019-03-10 14:40:00 [facility] TRAN[facility]CHO (TTE) 2019-03-03 08:12:00 Zina Coon [facility] TYPE AND SCREEN 2019-02-04 11:33:00 Iglesia Paniagua h T&S - COLLECTION 2019-02-04 11:33:00 Iglesia Paniagua [facility] RBC UNITS 2019-02-04 11:33:00 Iglesia Paniagua [facility] CBC/DIFF 2019-02-03 12:58:00 Kerry [facility] BASIC METABOLIC PANEL 2019-02-03 12:58:00 Kerry [facility] FERRITIN 2019-02-03 12:58:00 [facility] LIVER [facility]FILE 2019-02-03 12:58:00 [facility] 2019-02-03 12:58:00 [facility] DIFFERENTIAL, MANUAL 2019-02-03 12:58:00 Kerry [facility] CBC/DIFF 2018-12-09 16:13:00 Desi Lynn [facility] COMPREHENSIVE METABOLIC PANEL 2018-12-09 16:13:00 Desi Lynn [facility] CBC 2018-12-09 16:13:00 [facility] S[facility]MEAR/ NOT FOR PATH REVIEW 2018-12-09 16:13:00 Pelon Coon [facility] HGB FRACTIONATION 2018-12-09 16:13:00 Zina Coon [facility] ELECTROPH, BLD 2018-12-09 16:13:00 Zina Coon [facility] LACTATE DEHYDROGENASE (LDH) 2018-12-09 16:13:00 Zina Coon [facility] HAPTOGLOBIN 2018-12-09 16:13:00 Zina Coon [facility] GAMMA GLUTAMYL TRANSFERASE (GGT) 2018-12-09 16:13:00 Michel Coon [facility] LIVER PROFILE 2018-12-09 16:13:00 Zina Coon [facility] DIFFERENTIAL, MANUAL-WAM 2018-12-09 16:13:00 Leah Tristanruthiemadi [facility] BMP POC 2018-12-06 09:18:00 Zina [facility] 2018-12-06 09:07:00 CoonZina [facility] CBC/DIFF 2018-12-06 09:07:00 Marlene Casey Jose [facility] CBC 2018-12-06 09:07:00 Lawson Caseymisti Manuel [facility] POC BMP - IN LAB (STAT) 2018-12-06 09:07:00 ShaggyZina [facility] BMP POC 2018-11-29 10:23:00 Zina Coon HERED.HEMOCHROMATOSIS, DNA 2018-11-29 10:18:00 ShaggyZina [facility] POC BMP - IN LAB (STAT) 2018-11-29 10:17:00 ShaggyZina Real [facility] UREA NITROGEN/CREATININE 2018-11-29 10:16:00 Shaggy Zina Cr [facility] LIVER PROFILE 2018-11-29 10:16:00 Shaggy Zina [facility] IRON PROFILE 2018-11-29 10:16:00 Zina Coon [facility] CBC/DIFF 2018-11-29 10:16:00 Shaggy Zina Manuel [facility] FERRITIN 2018-11-29 10:16:00 ShaggyZina [facility] CBC 2018-11-29 10:16:00 ShaggyZina [facility] DIFFERENTIAL, MANUAL-WAM 2018-11-29 10:16:00 Shaggy Zina Tayo [facility] Plan of Care Planned Activity Planned Date Details Comments Source Future Scheduled Test 2019-12-25 00:00:00 IMM Influenza Seas onal Dec to May (>/= 19 yrs) [code = IMM Influenza Seasonal Dec to May (>/= 19 yrs)] [facility] Future Scheduled Test 2019-02-19 00:00:00 Screening for krish gnant neoplasm of colon (procedure) [code = 935671426] [facility] Scheduled Test 2018-10-08 00:00:00 Breast Cancer Scrn (Yearly) [code = Breast Cancer Scrn (Yearly)] [facility] Encounters Start Date/Time End Date/Time Encounter Type Admission Type [facility] Care Department Encounter ID Source 2019-10-06 18:05:00 Inpatient E [facility] [id number] [facility] 2018-04-17 12:47:42 Inpatient [facility] [id number] [facility] 2019-10-11 12:54:00 2019-10-11 12:54:00 Emergency E [facility]NE [facility] [id number] [facility] 2019-09-30 07:51:00 2019-09-30 12:05:00 Discharged Inpatient 1 [place] STEWART [facility] [id number] [facility] 2019-03-03 00:00:00 2019-03-03 00:00:00 Outpatient [facility] [id number] [facility] 2019-02-13 00:00:00 2019-02-13 00:00:00 Outpatient [facility] [id number] [facility] 2019-02-04 00:00:00 2019-02-04 00:00:00 Outpatient [facility] [id number] [facility] 2019-02-03 00:00:00 2019-02-03 00:00:00 Outpatient [facility] [id number] [facility] 2019-02-03 00:00:00 2019-02-03 00:00:00 Outpatient [facility] [id number] [facility] 2019-02-03 00:00:00 2019-02-03 00:00:00 Outpatient [facility] [id number] [facility] 2019-02-03 00:00:00 2019-02-03 00:00:00 Outpatient [facility] [id number] [facility] 2018-12-10 12:56:40 2018-12-10 12:56:40 Outpatient [facility] [id number] [facility] 2018-12-09 15:56:56 2018-12-09 15:56:56 Outpatient [facility] [id number] [facility] 2018-12-09 13:33:21 2018-12-09 13:33:21 Outpatient [facility] [id number] [facility] 2018-12-09 00:00:00 2018-12-09 00:00:00 Outpatient [facility] [id number] [facility] 2018-12-09 00:00:00 2018-12-09 00:00:00 Outpatient [facility] [id number] [facility] 2018-12-06 09:34:57 2018-12-06 09:34:57 Outpatient [facility] [id number] [facility] 2018-12-06 09:05:08 2018-12-06 09:05:08 Outpatient [facility] [id number] [facility] 2018-12-06 00:00:00 2018-12-06 00:00:00 Outpatient [facility] [id number] [facility] 2018-11-29 09:58:13 2018-11-29 09:58:13 Outpatient [facility] [id number] [facility] 2018-11-29 08:53:56 2018-11-29 08:53:56 Outpatient [facility] [id number] [facility] 2018-11-29 00:00:00 2018-11-29 00:00:00 Outpatient [facility] [id number] [facility] 2018-11-21 00:00:00 2018-11-21 00:00:00 Outpatient [facility] [id number] [facility] 2018-10-28 00:00:00 2018-10-28 00:00:00 Outpatient [facility] [id number] [facility] 2018-10-25 00:00:00 2018-10-25 00:00:00 Outpatient [facility] [id number] [facility] 2018-10-24 16:10:13 2018-10-24 16:10:13 Emergency [facility] [id number] [facility] 2018-10-24 15:40:18 2018-10-24 15:40:18 Emergency [facility] [id number] [facility] 2018-10-24 15:34:29 2018-10-24 15:34:29 Outpatient [facility] [id number] [facility] 2018-10-24 11:43:50 2018-10-24 11:43:50 Outpatient [facility] [id number] [facility] 2018-10-24 11:30:26 2018-10-24 11:30:26 Outpatient [facility] [id number] [facility] 2018-10-24 10:03:38 2018-10-24 10:03:38 Outpatient [facility] [id number] [facility] 2018-10-24 00:00:00 2018-10-24 00:00:00 Outpatient [facility] [id number] [facility] 2018-10-16 10:22:46 2018-10-16 10:22:46 Outpatient [facility] [id number] [facility] 2018-10-16 09:52:41 2018-10-16 09:52:41 Outpatient [facility] [id number] [facility] 2018-10-16 08:43:32 2018-10-16 08:43:32 Outpatient [facility] [id number] [facility] 2018-10-14 15:16:23 2018-10-14 15:16:23 Outpatient [facility] [id number] [facility] 2018-10-14 14:59:55 2018-10-14 14:59:55 Outpatient [facility] [id number] [facility] 2018-10-14 00:00:00 2018-10-14 00:00:00 Outpatient [facility] [id number] [facility] 2018-10-14 00:00:00 2018-10-14 00:00:00 Outpatient [facility] [id number] [facility] 2018-07-26 11:17:39 2018-07-26 11:17:39 Outpatient [facility] [id number] [facility] 2018-06-13 08:53:57 2018-06-13 08:53:57 Outpatient [facility] [id number] [facility] 2018-06-04 00:00:00 2018-06-04 00:00:00 Outpatient [facility] [id number] [facility] 2018-05-31 14:41:41 2018-05-31 14:41:41 Outpatient [facility] [id number] [facility] 2018-05-22 00:00:00 2018-05-22 00:00:00 Outpatient [facility] [id number] [facility] 2018-05-22 00:00:00 2018-05-22 00:00:00 Outpatient [facility] [id number] [facility] 2018-05-22 00:00:00 2018-05-22 00:00:00 Outpatient [facility] [id number] [facility] 2018-05-22 00:00:00 2018-05-22 00:00:00 Outpatient [facility] [id number] [facility] 2018-05-09 00:00:00 2018-05-09 00:00:00 Outpatient [facility] [id number] [facility] 2018-05-09 00:00:00 2018-05-09 00:00:00 Outpatient [facility] [id number] [facility] 2018-05-06 00:00:00 2018-05-06 00:00:00 Outpatient [facility] [id number] [facility] 2018-05-06 00:00:00 2018-05-06 00:00:00 Outpatient [facility] [id number] [facility] 2018-05-02 10:37:17 2018-05-02 10:37:17 Outpatient [facility] [id number] [facility] 2018-04-11 12:58:17 2018-04-11 12:58:17 Outpatient [facility] [id number] [facility] 2018-04-10 21:20:06 2018-04-10 21:20:06 Outpatient [facility] [id number] [facility] 2018-04-10 14:01:01 2018-04-10 14:01:01 Outpatient [facility] [id number] [facility] 2018-04-10 12:31:04 2018-04-10 12:31:04 Outpatient [facility] [id number] [facility] 2018-04-10 09:19:22 2018-04-10 09:19:22 Emergency [facility] [id number] [facility] 2018-04-10 00:00:00 2018-04-10 00:00:00 Emergency [facility] [id number] [facility] 2018-04-10 00:00:00 2018-04-10 00:00:00 Emergency [facility] [id number] [facility] 2018-04-09 21:38:53 2018-04-09 21:38:53 Emergency [facility] [id number] [facility] 2018-04-09 21:38:40 2018-04-09 21:38:40 Emergency [facility] [id number] [facility] 2018-04-09 14:32:37 2018-04-09 14:32:37 Inpatient [facility] [id number] [facility] 2018-04-04 10:39:44 2018-04-04 10:39:44 Outpatient [facility] [id number] [facility] 2018-04-04 00:00:00 2018-04-04 00:00:00 Outpatient [facility] [id number] [facility] 2018-03-20 10:25:55 2018-03-20 10:25:55 Outpatient [facility] [id number] [facility] 2018-03-20 09:53:24 2018-03-20 09:53:24 Outpatient [facility] [id number] [facility] 2018-03-15 09:12:39 2018-03-15 09:12:39 Outpatient [facility] [id number] [facility] 2018-03-13 10:09:18 2018-03-13 10:09:18 Outpatient [facility] [id number] [facility] 2018-03-13 00:00:00 2018-03-13 00:00:00 Outpatient [facility] [id number] [facility] 2018-02-19 11:48:15 2018-02-19 11:48:15 Outpatient [facility] [id number] [facility] 2018-02-16 00:00:00 2018-02-16 00:00:00 Outpatient [facility] [id number] [facility] 2018-02-01 00:00:00 2018-02-01 00:00:00 Outpatient [facility] [id number] [facility] 2018-01-30 14:19:45 2018-01-30 14:19:45 Outpatient [facility] [id number] [facility] 2018-01-30 00:00:00 2018-01-30 00:00:00 Outpatient [facility] [id number] [facility] 2018-01-24 10:09:03 2018-01-24 10:09:03 Outpatient [facility] [id number] [facility] 2018-01-23 00:00:00 2018-01-23 00:00:00 Outpatient [facility] [id number] [facility] 2018-01-23 00:00:00 2018-01-23 00:00:00 Outpatient [facility] [id number] [facility] 2018-01-22 00:00:00 2018-01-22 00:00:00 Outpatient [facility] [id number] [facility] 2018-01-21 15:44:18 2018-01-21 15:44:18 Outpatient [facility] [id number] [facility] 2018-01-21 14:17:09 2018-01-21 14:17:09 Outpatient [facility] [id number] [facility] 2018-01-21 00:00:00 2018-01-21 00:00:00 Outpatient [facility] [id number] [facility] 2018-01-15 00:00:00 2018-01-15 00:00:00 Outpatient [facility] [id number] [facility] 2018-01-11 00:00:00 2018-01-11 00:00:00 Outpatient [facility] [id number] [facility] 2018-01-11 00:00:00 2018-01-11 00:00:00 Outpatient [facility] [id number] [facility] 2017-12-17 09:07:51 2017-12-17 09:07:51 Outpatient [facility] [id number] [facility] 2017-12-15 00:00:00 2017-12-15 00:00:00 Outpatient [facility] [id number] [facility] 2017-12-12 10:54:22 2017-12-12 10:54:22 Outpatient [facility] [id number] [facility] 2017-11-30 07:52:20 2017-11-30 07:52:20 Outpatient [facility] [id number] [facility] 2017-11-16 14:54:21 2017-11-16 14:54:21 Outpatient [facility] [id number] [facility] 2017-11-16 00:00:00 2017-11-16 00:00:00 Outpatient [facility] [id number] [facility] 2017-10-22 00:00:00 2017-10-22 00:00:00 Outpatient [facility] [id number] [facility] 2017-10-08 13:09:04 2017-10-08 13:09:04 Outpatient [facility] [id number] [facility] 2017-10-08 10:17:40 2017-10-08 10:17:40 Outpatient [facility] [id number] [facility] 2017-09-21 00:00:00 2017-09-21 00:00:00 Outpatient [facility] [id number] [facility] 2017-09-17 13:14:14 2017-09-17 13:14:14 Outpatient [facility] [id number] [facility] 2017-09-17 13:13:53 2017-09-17 13:13:53 Outpatient [facility] [id number] [facility] 2017-09-05 10:50:39 2017-09-05 10:50:39 Outpatient [facility] [id number] [facility] 2017-09-05 09:34:21 2017-09-05 09:34:21 Outpatient [facility] [id number] [facility] 2017-08-22 00:00:00 2017-08-22 00:00:00 Outpatient [facility] [id number] [facility] 2017-06-27 11:22:22 2017-06-27 11:22:22 Outpatient [facility] [id number] [facility] 2017-06-21 00:00:00 2017-06-21 00:00:00 Outpatient [facility] [id number] [facility] 2017-05-15 00:00:00 2017-05-15 00:00:00 Outpatient [facility] [id number] [facility] 2017-04-25 15:54:13 2017-04-25 15:54:13 Outpatient [facility] [id number] [facility] 2017-04-25 14:21:23 2017-04-25 14:21:23 Outpatient [facility] [id number] [facility] 2017-01-26 16:41:02 2017-01-26 16:41:02 Outpatient [facility] [id number] [facility] 2017-01-25 00:00:00 2017-01-25 00:00:00 Outpatient [facility] [id number] [facility] 2017-01-24 14:14:27 2017-01-24 14:14:27 Outpatient [facility] [id number] [facility] 2017-01-13 11:40:53 2017-01-13 11:40:53 Emergency [facility] [id number] [facility] 2017-01-11 00:00:00 2017-01-11 00:00:00 Outpatient [facility] [id number] [facility] Results Test Description Test Time Test Comments Results Result Comments Source U/S RENAL 2019-10-28 14:59:01 IMPRESSION: 1. 1.8 cm angiomyolipoma in the lower pole of the left kidney.2. Increased echogenicity of the renal cortex bilaterally suggestive ofmedical renal disease. Dictated By: Isha Bruno MD, 10/28/2019 2:11 PM I have reviewed the study and agree with the findings in this report. Signed By: Samy Landon MD, 10/28/2019 2:59 PM Interface, Rad/Mammog In - 10/28/2019 3:04 PM CDTEXAM: Renal UltrasoundINDICATION: hyponatremia COMPARISON: None. Correlation with CT abdomen dated 10/24/2018. TECHNIQUE: Transverse and longitudinal images of the kidneys and bladderwere obtained. FINDINGS: Right Kidney: Size: 9.4 cm Echogenicity: Increased Parenchymal thickness: Normal Collecting system: No hydronephrosis Stones: None Cyst/Mass: Simple cyst located in the superior pole measuring 1 x0.6 x 0.9 cmLeft Kidney: Size: 10.7 cm Echogenicity: Increased Parenchymal thickness: Normal Collecting system: No hydronephrosis Stones: None Cyst/Mass: No shadowing hyperechoic mass in the inferior polemeasuring 1.8 x 1.4 x 1.6 cm most suggestive of an angiomyolipoma.Bladder: UnremarkableIMPRESSIONIMPRESSION:1. 1.8 cm angiomyolipoma in the lower pole of the left kidney.2. Increased echogenicity of the renal cortex bilaterally suggestive ofmedical renal disease. Dictated By: Isha Bruno MD, 10/28/2019 2:11 PMI have reviewed the study and agree with the findings in this report.Signed By: Samy Landon MD, 10/28/2019 2:59 PM [facility] Differential, Manual 2019-10-24 22:20:00 Test Item Neutrophil (test code = 47835981) 58.0 % 34-70 Lymphs (test code = 88039508) 28.0 % 20-50 Monocytes (test code = 17091482) 6.0 % 5-12 Eos (test code = 87984031) 5.0 % 0.7-5 Basos (test code = 83708823) 2.0 % 0.1-1.2 H Myelocyte (test code = 15669724) 1.0 % Neutrophils (Absolute) (test code = 74826758) 2.73 K/uL 1.56-6.1 3 Lymphs (Absolute) (test code = 93941603) 1.32 K/uL 1.18-3.74 Monocytes(Absolute) (test code = 33263808) 0.28 K/uL 0.24-0.36 Eos (Absolute) (test code = 69050076) 0.24 K/uL 0.04-0.36 Baso (Absolute) (test code = 74525123) 0.09 K/uL 0.01-0.08 H Platelet Clumps (test code = 01675541) Present None seen A Cells Counted (test code = 45021109) Lab Interpretation (test code = 36865-1) [facility]normal [facility] Dxfuw9443-21-82 22:14:00* Test Item Value Reference Range Interpretation Comments Sodium (test code = 2951-2) 137 mmol/L 136-145 Potassium (test code = 2823-3) 4.6 mmol/L 3.5-5.1 Chloride (test code = 2075-0) 87 mmol/L 98-107 L CO2 (test code = 75579906) 44 mmol/L 21-31 H Glucose (test code = 54909359) 106 mg/dL 70-110 Calcium (test code = 03081491) 10.8 mg/dL 8.6-10.3 H Urea Nitrogen (test code = 62187553) 10.0 mg/dL 7-25 Creatinine (test code = 12893835) 0.9 mg/dL 0.6-1.2 Alkaline Phosphatase (test code = 61207118) 56 U/L 34-104 ALT (test code = 26227534) 20 U/L 7-52 AST (test code = 75540409) 15 U/L 13-39 Total Protein (test code = 2885-2) 6.2 g/dL 6-8.3 GFR, Estimated (test code = 17958089) 63 >=90 mL/min/1.73 m2 L Albumin (test code = 56279-0) 4.6 g/dL 3.7-5.3 Anion Gap (test code = 64393095) 6 mmol/L 5-16 Lab Interpretation (test code = 12561-8) Abnormal [facility] Arwpqhd3681-77-14 14:58:00* Test Item Value Reference Range Interpretation Comments Urine Culture (test code = 630-4) No growth 2 days [place] [address] LEAD CWZ6066-12-00 05:54:2412 LEAD EKG FOR [facility] Test Date: 0752-07-45Dkv Name: DIANE FRANKLIN Department: 5520Patient ID: [id number] Room: Gender: F Turkey Picker: : 1955 Requested By: BARI ZHANG EOrder Number: [id number] Reading MD: Sudhakar Burkett M.D. MeasurementsIntervals Wynona Rate: 93 P: 61PR: 141 QRS: 38QRSD: 90 T: 71QT: 326 QTc: 406 Interpretive StatementsSINUS RHYTHMElectronically Signed On 10-17-2019 5:54:19 CDT by Sudhakar Burkett M.D. [facility] TROPONIN I POC docked rpwuhi6132-60-05 03:57:00* Test Item Value Reference Range Interpretation Comments Troponin POC (test code = 28815336) 0.01 ng/mL 0-0.08 Lab Interpretation (test code = 49049-9) Normal [place] [address] Skuzt6763-94-23 01:55:00* Test Item Value Reference Range Interpretation Comments Irrad LRBC (test code = 67349147) compatible Unit ABO Type (test code = 21997250) O Unit Rh Type (test code = 86333385) NEG Product Code (test code = 24656685) E0332 Unit Number (test code = 97952173) [id number] Unit Status (test code = 94071303) transfused ISBT Product Code (test code = 38195) [id number] Blood Type (test code = 47808) 9500 Blood Expiration Date (test code = 51762) [id number] Kaleb SabaCoronavirus, CoVID-19, DLQ9104-57-65 23:21:00* Test Item Value Reference Range Interpretation Comments COVID-19 (SARS-COV-2) (test code = 56959-5) Not Detected Not Detect ed INTERPRETATION: No detectable levels of SARS-CoV-2 Coronavirus (COVID-19) were present [...] of active infection with SARS-CoV-2 Coronavirus (COVID-19). EVETTE (test code = EVETTE) COMMENT: This MedyMatch TaqPath COVID-19 real- time PCR Emergency Use Authorization (EUA) test was developed, and its performance characteristics determined by the [facility] molecular di agnostic Laboratory. It has been validated by bridging studies under the FDA "Policy for Diagnostic Tests for Coronavirus Disease-2019 during the Public Health Emergency". This laboratory is certified under federal CLIA regulations to perform this type of high complexity testing. Lab Interpretation (test code = 83694-3) Normal [place] [address] LEAD RDR6229-63-20 19:53:5912 LEAD EKG FOR [facility] Test Date: 7129-64-74Gcr Name: DIANE FRANKLIN Department: 5520Patient ID: [id number] Room: Gender: F Turkey Picker: [phone]: 1955 Requested By: ELIZABETH GERMAN Order Number: [id number] Horacio MD: Sudhakar Burkett M.D. MeasurementsIntervals [place] Rate: 97 P: 69PR: 138 QRS: 40QRSD: 96 T: 71QT: 326 QTc: 415 Interpretive StatementsSINUS RHYTHMElectronically Signed On 10-16-2019 19:53:58 CDT by Sudhakar Burkett M.D. [facility]twxc8957-78-46 19:04:00* Test Item Value Reference Range Interpretation Comments Specimen Expiration (test code = 45314669) 10/19/2019 23:59 ABO/RH (test code = 25505966) O NEG Antibody Screen (test code = 65741546) NEG [facility]tk[facility]lnysqb3919-66-76 19:03:00* Test Item Value Reference Range Interpretation Comments Ammonia (test code = 88432834) 47.0 umol/L 16-53 Lab Interpretation (test code = 04235-8) [facility] Dsjxa5665-40-02 18:57:00* Test Item Value Reference Range Interpretation Comments Sodium (test code = 2951-2) 128 mmol/L 136-145 L Potassium (test code = 2823-3) 4.6 mmol/L 3.5-5.1 Chloride (test code = 2075-0) 89 mmol/L 98-107 L CO2 (test code = 30591445) 32 mmol/L 21-31 H Urea Nitrogen (test code = 67272977) 15.0 mg/dL 7-25 Creatinine (test code = 86749875) 1.2 mg/dL 0.6-1.2 Glucose (test code = 81916703) 151 mg/dL 70-110 H Calcium (test code = 46374364) 9.8 mg/dL 8.6-10.3 GFR, Estimated (test code = 80014749) 45 >=90 mL/min/1.73 m2 L Anion Gap (test code = 93725380) 7 mmol/L 5-16 Lab Interpretation (test code = 39868-3) Abnormal [facility] Cjhxdnq4132-81-46 18:57:00* Test Item Value Reference Range Interpretation Comments Bilirubin, Total (test code = 2885-2) 1.4 mg/dL 0.2-1.2 H Alkaline Phosphatase (test code = 62616358) 53 U/L 34-104 AST (test code = 23422492) 18 U/L 13-39 Direct Bilirubin (test code = 1968-7) 0.3 mg/dL 0-0.2 H ALT (test code = 73213003) 27 U/L 7-52 Albumin (test code = 12824-2) 4.5 g/dL 3.7-5.3 Lab Interpretation (test code = 66473-5) [facility]normal [facility] 2 UJDMG3286-11-29 18:32:52IMPRESSION: No acute thoracic abnormality. Signed By: Jude Salcedo MD, 10/16/2019 6:32 PM Interface, Rad/Mammog In - 10/16/2019 6:37 PM CDTEXAMINATION: XRAY CHEST 2 VIEWS COMPARISON: NoneINDICATION: shortness of breath, feverDISCUSSION:Lines/tubes: None.Lungs: Age-related interstitial change. No pneumonia or pulmonary edema.Pleura: No pleural effusion or pneumothorax.Heart and mediastinum: The heart and the mediastinum are unremarkable.Bones and soft tissues: No acute osseous abnormality. Prior vertebralaugmentation of the thoracic vertebrae .IMPRESSIONIMPRESSION: No acute thoracic abnormality. Signed By: Jude Anderson ch, MD, 10/16/2019 6:[facility]ed xrhqvc5965-77-60 14:27:00* Test Item Value Reference Range Interpretation Comments Creatinine POC (test code = 77409395) 1.3 mg/dL 0.6-1.3 GFR, Estimated (test code = 98265988) 43 >=90 mL/min/1.73 m2 L Lab Interpretation (test code = 63794-4) [facility]ed gbydhz6295-07-09 14:23:00* Test Item Value Reference Range Interpretation Comments Sodium POC (test code = 71757353) 131 mmol/L 136-145 L Potassium POC (test code = 78623237) 4.3 mmol/L 3.5-5.1 Chloride POC (test code = 19271691) 87 mmol/L 98-107 L TCO2 POC (test code = 55035616) 33 mmol/L 21-32 H Urea Nitrogen POC (test code = 77327223) 13 mg/dL 7-18 Glucose POC (test code = 93242298) 93 mg/dL 74-106 Lab Interpretation (test code = 38331-3) Abnormal [facility], TWMWXOSIHLF3742-94-31 14:10:00* Test Item Value Reference Range Interpretation Comments RBC (test code = 68906624) 0-1 0- 4 /HPF WBC (test code = 95468146) 5-20 0- 5 /HPF A Epithelial Cell (test code = 04723481) <1/HPF <1 /HPF Bacteria (test code = 57519712) Few None seen /HPF A Lab Interpretation (test code = 20038-9) Abnormal [facility] HospitalNzgnvyKznqwppzak4066-33-41 14:01:00* Test Item Value Reference Range Interpretation Comments Color (test code = 90068839) Yellow Colorless, Straw, Yellow Clarity (test code = 46547552) Clear Clear Spec Darden, Ur (test code = 5811-5) 1.015 1.005-1.035 pH, Ur (test code = 5803-2) 5.5 5.0-8.0 Protein, Ur (test code = 59267-4) Negative Negative mg/dL Glucose, Ur (test code = 17438-9) Negative Negative Ketone, Ur (test code = 2514-8) Negative Negative Bilirubin, Ur (test code = 5770-3) Negative Negative Nitrite, Ur (test code = 5802-4) Negative Negative Urobilinogen, Ur (test code = 97995-6) <1.0 <1.0 EU/dL Leukocyte (test code = 06580231) trace Negative A Blood, Ur (test code = 47395205) Negative Negative Lab Interpretation (test code = 44935-9) [facility] sodium measurement (moles/volume)2019-09-30 05:39:00* Test Item Value Reference Range Interpretation Comments Sodium Level (test code = 2951-2) 115 136-145 Results repeated and called to ASIF LINDSEY at 0648 on 09/30/19 by Dexter Hurley. Re ad back and verified.[facility]erum or plasma potassium measurement (moles/volume)2019-09-30 05:39:00* Test Item Value Reference Range Interpretation Comments Potassium Level (test code = 2823-3) 3.6 3.5-5.1 [facility] Hospitalerum or plasma chloride measurement (moles/volume)2019-09-30 05:39:00* Test Item Value Reference Range Interpretation Comments Chloride Level (test code = 2075-0) 70 98-107 [facility] Hospitalerum or plasma carbon dioxide, total measurement (moles/volume)2019-09-30 05:39:00* Test Item Value Reference Range Interpretation Comments Carbon Dioxide Level (test code = 2028-9) 35 22-29 [facility] Hospitalerum or plasma anion xdl3075-56-04 05:39:00* Test Item Value Reference Range Interpretation Comments Anion Gap (test code = 73589-4) 13.6 8-16 [facility] Hospitalerum or plasma urea nitrogen measurement (mass/volume)2019-09-30 05:39:00* Test Item Value Reference Range Interpretation Comments Blood Urea Nitrogen (test code = 3094-0) 12 7-26 [facility] Hospitalerum or plasma creatinine measurement (mass/volume)2019-09-30 05:39:00* Test Item Value Reference Range Interpretation Comments Creatinine (test code = 2160-0) 1.11 0.57-1.11 [facility] Hospitalerum or plasma urea nitrogen/creatinine mass ywmwa1545-00-69 05:39:00* Test Item Value Reference Range Interpretation Comments BUN/Creatinine Ratio (test code = 3097-3) 11 6-25 [facility] HospitalEstimated glomerular filtration rate (GFR) gkhgcddfgrtwl2719-06-58 05:39:00* Test Item Value Reference Range Interpretation Comments Estimat Glomerular Filtration Rate (test code = 405375008) 49 >60 Ranges were taken from the National Kidney Disease Education Program and the [facility] literature.Reference ranges:60 or greater: Tjcock18-04 ( for 3 consecutive months): Chronic kidney disease 15 or less: Kidney failureTexas Orthopedic HospitalGlucose kqvijiqtccn0037-03-42 05:39:00* Test Item Value Reference Range Interpretation Comments Glucose Level (test code = DNR8472) 126 74-118 [facility] Hospitalerum or plasma calcium measurement (mass/volume)2019-09-30 05:39:00* Test Item Value Reference Range Interpretation Comments Calcium Level (test code = 40650-1) 9.6 8.4-10.2 [facility] HospitalOsmolality of Serum or Plasma by mdmwtorcuvq3422-62-58 05:39:00* Test Item Value Reference Range Interpretation Comments Serum Osmolality (test code = 71018-2) 234 278-305 [facility] Hospitalerum or plasma total bilirubin measurement (mass/volume)2019-09-30 05:39:00* Test Item Value Reference Range Interpretation Comments Total Bilirubin (test code = 1975-2) 1.8 0.2-1.2 [facility] HospitalFluoroscopic procedure less than one hour qhkfeued6294-83-49 05:39:00* Test Item Value Reference Range Interpretation Comments Aspartate Amino Transf (AST/SGOT) (test code = Aspartate Amino Transf (AST/SGOT)) 42 5-34 [facility] Hospitalerum or plasma alanine aminotransferase measurement (enzymatic activity/volume)2019-09-30 05:39:00* Test Item Value Reference Range Interpretation Comments Alanine Aminotransferase (ALT/SGPT) (test code = 1742-6) 27 0-55 [facility] Hospitalerum or plasma protein measurement (mass/volume)2019-09-30 05:39:00* Test Item Value Reference Range Interpretation Comments Total Protein (test code = 2885-2) 6.7 6.5-8.1 [facility] Hospitalerum or plasma albumin measurement (mass/volume)2019-09-30 05:39:00* Test Item Value Reference Range Interpretation Comments Albumin (test code = 1751-7) 4.3 3.5-5.0 [facility] HospitalPlasma globulin measurement (mass/volume) 2019-09-30 05:39:00* Test Item Value Reference Range Interpretation Comments Globulin (test code = 01834-4) 2.4 2.3-3.5 [facility] Hospitalerum or plasma albumin/globulin mass aifkq9474-34-32 05:39:00* Test Item Value Reference Range Interpretation Comments Albumin/Globulin Ratio (test code = 1759-0) 1.8 0.8-2.0 [facility] Hospitalerum or plasma alkaline phosphatase measurement (enzymatic activity/volume)2019-09-30 05:39:00* Test Item Value Reference Range Interpretation Comments Alkaline Phosphatase (test code = 6768-6) 65 40-150 [facility] HospitalFluoroscopic procedure less than one hour qeatiatz9878-71-91 05:39:00* Test Item Value Reference Range Interpretation Comments Venous Blood pH (test code = Venous Blood pH) 7.395 7.35-7.3 8 [facility] HospitalFluoroscopic procedure less than one hour dnixcsch8675-91-08 05:39:00* Test Item Value Reference Range Interpretation Comments Venous Blood Partial Pressure CO2 (test code = Venous Blood Partial Pressure CO2) 53.3 44-48 [facility] HospitalFluoroscopic procedure less than one hour njpvhjyw9410-41-87 05:39:00* Test Item Value Reference Range Interpretation Comments Venous Blood Partial Pressure O2 (test code = Venous B lood Partial Pressure O2) 36 40-41 [facility] HospitalFluoroscopic procedure less than one hour lmlgjxfg1911-99-11 05:39:00* Test Item Value Reference Range Interpretation Comments Venous Blood HCO3 (test code = Venous Blood HCO3) 36.3 21-2 2 [facility] HospitalFluoroscopic procedure less than one hour uupkkcft3175-42-41 05:39:00* Test Item Value Reference Range Interpretation Comments Venous Blood Total Carbon Dioxide (test code = Venous Blood Total Carbon Dioxide) 38 [facility] HospitalFluoroscopic procedure less than one hour qeahoobo9002-22-78 05:39:00* Test Item Value Reference Range Interpretation Comments Venous Blood Base Excess (test code = Venous Blood Base Excess) 11 [facility] HospitalFluoroscopic procedure less than one hour cleiqefk0731-29-55 05:39:00* Test Item Value Reference Range Interpretation Comments Venous Blood Oxygen Saturation (test code = Venous Blood Oxy gen Saturation) 66 [facility] HospitalUrine color ibbmmarmpuvgy3026-57-73 03:40:00* Test Item Value Reference Range Interpretation Comments Urine Color (test code = 5778-6) YELLOW YELLOW [facility] HospitalUrine ibmbidw4397-97-76 03:40:00* Test Item Value Reference Range Interpretation Comments Urine Clarity (test code = 61947-7) SL CLOUDY CLEAR [facility] Spine Hospitalpecific gravity of Urine by Test strip 2019-09-30 03:40:00* Test Item Value Reference Range Interpretation Comments Urine Specific Darden (test code = 5811-5) 1.020 1.010-1.02 5 [facility] HospitalUrine pH measurement by automated test wtyzc9878-62-03 03:40:00* Test Item Value Reference Range Interpretation Comments Urine pH (test code = 46581-1) 8.5 5-7 [facility] HospitalUrine leukocyte esterase detection by xjwwyhqs0894-97-75 03:40:00* Test Item Value Reference Range Interpretation Comments Urine Leukocyte Esterase (test code = 5799-2) NEGATIVE NEGATIVE [facility] HospitalUrine nitrite zbetxrxxp8560-94-40 03:40:00* Test Item Value Reference Range Interpretation Comments Urine Nitrite (test code = 83704-8) NEGATIVE NEGATIVE [facility] HospitalUrine protein measurement by test strip (mass/volume)2019-09-30 03:40:00* Test Item Value Reference Range Interpretation Comments Urine Protein (test code = 5804-0) NEGATIVE NEGATIVE [facility] HospitalUrine glucose htpgolwln6963-71-65 03:40:00* Test Item Value Reference Range Interpretation Comments Urine Glucose (UA) (test code = 2349-9) NEGATIVE NEGATIVE [facility] HospitalUrine ketones detection by automated test xfsxb8659-93-56 03:40:00* Test Item Value Reference Range Interpretation Comments Urine Ketones (test code = 09873-3) NEGATIVE NEGATIVE [facility] HospitalUrine urobilinogen measurement by test strip (mass/volume)2019-09-30 03:40:00* Test Item Value Reference Range Interpretation Comments Urine Urobilinogen (test code = 61767-1) 0.2 0.2-1 [facility] HospitalUrine total bilirubin measurement (mass/volume)2019-09-30 03:40:00* Test Item Value Reference Range Interpretation Comments Urine Bilirubin (test code = 1978-6) NEGATIVE NEGATIVE [facility] HospitalUrine erythrocytes buuqhlaxn9071-76-08 03:40:00* Test Item Value Reference Range Interpretation Comments Urine Blood (test code = 14855-1) NEGATIVE NEGATIVE [facility] HospitalAutomated urine sediment leukocyte count by microscopy (number/high power field)2019-09-30 03:40:00* Test Item Value Reference Range Interpretation Comments Urine WBC (test code = 5821-4) 21-50 0-5 [facility] HospitalErythrocytes detection in urine sediment by light zhiqsfijni3492-08-32 03:40:00* Test Item Value Reference Range Interpretation Comments Urine RBC (test code = 31234-3) 11-20 0-5 [facility] HospitalBacteria detection in urine sediment by light kadeeqrdxq7132-68-59 03:40:00* Test Item Value Reference Range Interpretation Comments Urine Bacteria (test code = 44096-1) MANY NONE [facility] HospitalEpithelial cells detection in urine sediment by light zfsrhncfhd7452-97-49 03:40:00* Test Item Value Reference Range Interpretation Comments Urine Epithelial Cells (test code = 11334-9) FEW NONE [facility] HospitalRenal epithelial cells detection in urine sediment by light ehtucizupz1557-68-21 03:40:00* Test Item Value Reference Range Interpretation Comments Urine Renal Epithelial Cells (test code = 14295-7) FEW NON E [facility] HospitalAmorphous sediment detection in urine sediment by light agnybepsrg6559-68-09 03:40:00* Test Item Value Reference Range Interpretation Comments Urine Amorphous Sediment (test code = 8246-1) MANY FEW [facility] HospitalUrine sodium measurement (moles/volume) 2019-09-30 03:40:00* Test Item Value Reference Range Interpretation Comments Urine Random Sodium (test code = 2955-3) 36 [facility] HospitalCHEST SINGLE (PORTABLE)2019-09-30 00:08:00 [facility] [address] [place] [address] Patient Name: DIANE FRANKLIN MR #: [id number] : 1955 Age/Sex: 63/F Req #: [id number] Adm Physician: Ordered by: ORLANDO STEWART DO Report #: [id number] Location: ER Room/Bed: Procedure: [id number] DX/CHEST SINGL E (PORTABLE) Exam Date: 09/29/19 Exam Time: 2245 REPORT STATUS: Signed EXAMINATION: CHEST SINGLE (PORTABLE) INDICATION: Altered mental status CO MPARISON: None FINDINGS: TUBES and LINES: None. LUNGS: Normal lung volumes. Lungs are clear. No consolidations. PLEURA: No pl eural effusion or pneumothorax. HEART AND MEDIASTINUM: The cardiomediastin al silhouette is unremarkable. Aortic calcifications. BONES AND SOFT TISS UES: Thoracic vertebral kyphoplasty material. No acute osseous lesion. Soft tissues are unremarkable. Healed right midclavicular fracture. Globular soft t issue fullness in the lower central mediastinum. UPPER ABDOMEN: No free air under the diaphragm. IMPRESSION: No acute thoracic radiographic abnormality. Suspect a gastric hiatal hernia. Signed by: Aren pineda DO on 09/30/2019 12:09 AM Dictated By: AREN ROMERO DO Electronical ly Signed By: AREN ROMERO DO on 09/30/198 Transcribed By: JOSE on 09/30/198 COPY TO: ORLANDO STEWART DO Arterial blood pH puwfdxrjhlp5457-88-07 23:50:00* Test Item Value Reference Range Interpretation Comments Arterial Blood pH (test code = 2744-1) 7.45 7.35-7.45 [facility] HospitalpCO2 XrhO8990-47-30 23:50:00* Test Item Value Reference Range Interpretation Comments Arterial Blood Partial Pressure CO2 (test code = 2018-10) 49 35-45 [facility] HospitalpCO2 HokS1031-17-35 23:50:00* Test Item Value Reference Range Interpretation Comments Arterial Blood Partial Pressure O2 (test code = 2018-10) 169 80-105 [facility] HospitalArterial blood bicarbonate measurement (moles/volume)2019-09-29 23:50:00* Test Item Value Reference Range Interpretation Comments Arterial Blood HCO3 (test code = 1960-4) 35 22-26 [facility] HospitalArterial blood base excess by calculation 2019-09-29 23:50:00* Test Item Value Reference Range Interpretation Comments Arterial Blood Base Excess (test code = 1925-7) 11.0 -2-3 [facility] HospitalArterial blood oxygen saturation bxnhsqahtjd5032-08-99 23:50:00* Test Item Value Reference Range Interpretation Comments Arterial Blood Oxygen Saturation (test code = 2708-6) 100.0 95-98 [facility] HospitalFluoroscopic procedure less than one hour czrxvcwq5881-98-11 23:50:00* Test Item Value Reference Range Interpretation Comments FiO2 (test code = FiO2) 28 [facility] HospitalCT BRAIN ZT6133-07-95 23:46:00 [facility] [address] [place] [address] Patient Name: DIANE FRANKLIN MR #: [id number] : 1955 Age/Sex: 63/F Req #: [id number] Adm Physician: Ordered by: ORLANDO STEWART DO Report #: [id number] Location: ER Room/Bed: Procedure: [id number] CT/CT BRAIN WO Exam Date: 09/29/19 Exam Time: 2245 REPORT STATUS: Signed EXAMINATION: Head CT with out contrast. HISTORY:Altered mental status, weakness. COMPARISON :None. TECHNIQUE: Multidetector axial images were obtained from the foramen ma gnum to the vertex without contrast. The images were reconstructed using brain and bone algorithms. Thin section brain images were reformatted into coronal and sagittal planes. Dose modulation, iterative reconstruction, and/or weig ht based adjustment of the mA/kV was utilized to reduce the radiation dose to as low as reasonably achievable. Intravenous contrast: None IMAGE QUALITY: Suboptimal evaluation particularly at the level of skull base and pos terior fossa structures due to streak artifacts. FINDINGS: Skull/scal p: No lytic or blastic. lesions. No surgical changes. Parenchyma: Nonspec ific few, scattered supratentorial white matter hypodensity are likely related to small vessel ischemic changes. Focal punctate hypodensity in the inferior aspect of right putamen represents prominent perivascular space. No acute he morrhage, mass or acute major vascular territorial infarct. Arteries: No d ensity suggestive of thrombosis. Dural sinuses: No abnormal density sug gestive of thrombosis. Ventricles: No hydrocephalus or displacement. Extra-axial spaces: No abnormal density. Brain volume: Normal for age. Craniocervical junction: No mass, Chiari malformation, or basilar invag ination. Sella: No mass. Paranasal/mastoid sinuses: Imaged portions unremarkable. IMPRESSION: No acute intracranial abnormality. Mild supratentorial white matter microvascular ischemic changes. Signed by: Dr. Amira Fulton M.D. on 09/29/2019 11:49 PM Dictated By: AMIRA FULTON MD 48 Transcribed By: JOSE on 09/29/192348 COPY TO: ORLANDO STEWART DO Blood leukocytes automated count (number/volume)2019-09-29 20:50:00* Test Item Value Reference Range Interpretation Comments White Blood Count (test code = 6690-2) 9.49 4.8-10.8 [facility] (number/volume)2019-09-29 20:50:00* Test Item Value Reference Range Interpretation Comments Red Blood Count (test code = 789-8) 2.92 3.6-5.1 [facility] hemoglobin measurement (moles/volume)2019-09-29 20:50:00* Test Item Value Reference Range Interpretation Comments Hemoglobin (test code = 53763-0) 9.9 12.0-16.0 [facility] HospitalAutomated blood hematocrit (volume fraction)2019-09-29 20:50:00* Test Item Value Reference Range Interpretation Comments Hematocrit (test code = 4544-3) 27.1 34.2-44.1 [facility] HospitalAutomated erythrocyte mean corpuscular oypewv7217-39-77 20:50:00* Test Item Value Reference Range Interpretation Comments Mean Corpuscular Volume (test code = 787-2) 92.8 81-99 [facility]Autom[facility] erythrocyte mean corpuscular hemoglobin (mass per erythrocyte)2019-09-29 20:50:00* Test Item Value Reference Range Interpretation Comments Mean Corpuscular Hemoglobin (test code = 785-6) 33.9 28-32 [facility] HospitalAutom[facility] erythrocyte mean corpuscular hemoglobin concentration measurement (mass/volume)2019-09-29 20:50:00* Test Item Value Reference Range Interpretation Comments Mean Corpuscular Hemoglobin Concent (test code = 786-4) 36.5 31-35 [facility] HospitalRDW UskAh-Ryz6930-77-06 20:50:00* Test Item Value Reference Range Interpretation Comments Red Cell Distribution Width (test code = 43378-8) 17.4 11.7 -14.4 [facility] HospitalAutom[facility] blood platelet count (count/volume)2019-09-29 20:50:00* Test Item Value Reference Range Interpretation Comments Platelet Count (test code = 777-3) 424 140-360 [facility] HospitalAutom[facility] blood segmented neutrophil count as percentage of total yngyfozkrm7452-17-35 20:50:00* Test Item Value Reference Range Interpretation Comments Neutrophils (%) (Auto) (test code = 30236-4) 73.9 38.7-80.0 [facility] HospitalAutomated blood lymphocyte count as percentage ot total uujinggkty1464-78-64 20:50:00* Test Item Value Reference Range Interpretation Comments Lymphocytes (%) (Auto) (test code = 736-9) 10.5 18.0-39.1 [facility] HospitalAutomated blood monocyte count as percentage of total bpqqbwaexs6001-78-41 20:50:00* Test Item Value Reference Range Interpretation Comments Monocytes (%) (Auto) (test code = 5905-5) 13.1 4.4-11.3 [facility] HospitalAutomated blood eosinophil count as percentage of total nopqqpices3860-42-67 20:50:00* Test Item Value Reference Range Interpretation Comments Eosinophils (%) (Auto) (test code = 713-8) 1.5 0.0-6.0 [facility] HospitalAutomated blood basophil count as percentage of total ezbbwgxjtf5229-71-15 20:50:00* Test Item Value Reference Range Interpretation Comments Basophils (%) (Auto) (test code = 706-2) 0.3 0.0-1.0 [facility] HospitalFluoroscopic procedure less than one hour gealvqws1960-88-41 20:50:00* Test Item Value Reference Range Interpretation Comments IM GRANULOCYTES % (test code = IM GRANULOCYTES %) 0.7 0.0- 1.0 [facility] HospitalAutom[facility] blood neutrophil count 2019-09-29 20:50:00* Test Item Value Reference Range Interpretation Comments Neutrophils # (Auto) (test code = 751-8) 7.0 2.1-6.9 [facility] HospitalBlood lymphocytes count (number/volume) 2019-09-29 20:50:00* Test Item Value Reference Range Interpretation Comments Lymphocytes # (Auto) (test code = 33640-4) 1.0 1.0-3.2 [facility] monocytes automated count (number/volume)2019-09-29 20:50:00* Test Item Value Reference Range Interpretation Comments Monocytes # (Auto) (test code = 742-7) 1.2 0.2-0.8 [facility] HospitalAutomated blood eosinophil count 2019-09-29 20:50:00* Test Item Value Reference Range Interpretation Comments Eosinophils # (Auto) (test code = 711-2) 0.1 0.0-0.4 [facility] HospitalAutomated blood basophil count (count/volume)2019-09-29 20:50:00* Test Item Value Reference Range Interpretation Comments Basophils # (Auto) (test code = 704-7) 0.0 0.0-0.1 [facility] HospitalFluoroscopic procedure less than one hour omgbdzsr6994-53-39 20:50:00* Test Item Value Reference Range Interpretation Comments Absolute Immature Granulocyte (auto (orlin t code = Absolute Immature Granulocyte (auto) 0.07 0-0.1 [facility] HospitalBNP Nao-zPsl4648-63-06 20:50:00* Test Item Value Reference Range Interpretation Comments B-Type Natriuretic Peptide (test code = 67054-6) 25.6 0-100 [facility] Hospitalerum or plasma creatine kinase measurement (enzymatic activity/volume)2019-09-29 20:50:00* Test Item Value Reference Range Interpretation Comments Creatine Kinase (test code = 2157-6) 241 29-168 [facility] Hospitalerum or plasma creatine kinase MB measurement (mass/volume)2019-09-29 20:50:00* Test Item Value Reference Range Interpretation Comments Creatine Kinase MB (test code = 72834-0) 12.90 0-5.0 [facility] HospitalTroponin I measurement by highly sensitive enzyme qkookbohbxp0560-59-79 20:50:00* Test Item Value Reference Range Interpretation Comments Troponin I (test code = 48277-1) 0.052 0-0.300 [facility] HospitalTRANSTHORACIC ECHO (TTE)2019-03-03 10:41:00TRANSTHORACIC ECHO (TTE) Transthoracic Echo Report DIANE FRANKLIN Age: 63 Gender: F : 1955 Exam Date: 03/03/2019 08:12 Exam Location: [facility] Echo Ordering Phys: ZINA COON Referring Phys: ZINA COON Reading Phys: Chrissy Jarrett MD Fellow Phys: Fellow Phys: Account Developer: Zuly Stoddard Reason For Exam: Indications: h/o edema, CHF ICD-9 Codes: I50.9 Exam Type: TRANSTHORACIC ECHO (TTE) Procedure CPT: 87678 Addtional CPT: Ht (in): 65 BSA: 1.85 [...] Volume 68.4 cm LA Volume Index 37 cm/m2 16 - 34 cm/m2 LV Mass by linear method 188 g LV Mass by linear method Index 102 g/m2 DOPPLER LVOT Peak Velocity 135 cm/s LVOT [...] tricuspid regurgitation. Insufficient TR jet to estimate pulmo nary artery systolic pressure. Pulmonic Valve Pulmonic valve not well visuali zed. Pericardium No pericardial effusion. Aorta Normal size aortic root ad justed for BSA. IVC RA pressure is 0-5 mmHg. CONCLUSIONS Normal left ventr icular size. Left ventricular wall thickness mildly increased. Normal left aga tricular systolic function. Left ventricular ejection fraction is 60-64%. Ther e are no regional wall motion abnormalities noted. E/e ratio suggests normal L V filling pressure. Right ventricle at upper limits of normal. Normal right ve ntricular function. Insufficient TR jet to estimate pulmonary artery systolic pressure. Compared to prior echo no significant changes. Chrissy Jarrett MD (Electronically Signed) Final Date: 03 March 2019 10:40 2D ECHO LV Diastolic Diameter PLAX 4.7 cm 4.2-5.8 (M) / 3.8-5.2 (F) LV Systolic Diameter PLAX 3.2 cm 2.5- 4.0 (M) / 2.2-3.5 (F) LV Fractional Shortening PLAX 31.8 % IVS Diastolic Thickness 1.1 cm 0.6-1.0 (M) / 0.6-0.9 ( F) LVPW Diastolic Thickness 1.1 cm 0.6-1.0 (M) / 0.6-0. 9 (F) LV Relative Wall Thickness 0.46 <= 0.42 LVOT Diameter 1.6 cm Aortic Root Diameter 3 cm LA Systolic Diameter LX 3.8 cm LA Ao Ratio 1.3 LA Volume 68.4 cm LA Volume Index 37 cm/m2 16 - 34 cm/m2 LV Mass by linear method 188 g LV Mass by linear method Index 102 g/m2 DOPPLER LVOT Peak Velocity 135 cm/s LVOT [...] E to LV E' Septal Ratio 9.2 [facility], Jax7344-87-42 18:40:00COMMENTMarked hyperalbuminemia is present with marked hypogammaglobulinemia. Mart Salvador M.D./[id number] [facility] LABORATORYProteinComment: 7.16.0 - 8.3 g/dLBEN [facility] Jldqaxqlejkha8232-28-48 16:34:00* Test Item Value Reference Range Interpretation Comments Hemoglobin A (test code = 96048591) 98.0 % 95-98 Hemoglobin A2 (test code = 49962840) 2.0 % 2.2-3.3 L Interpretation (test code = 65841157) No variant hemog lobin or evidence of thalassemia detected. Charanjit Castro MD / [id number] 2018 4:34 PM Lab Interpretation (test code = 84013-1) [facility]normal [facility] [Gamma-Glutamyl Transferase]2018-12-09 17:20:00* Test Item Value Reference Range Interpretation Comments GGT (test code = 03137150) 14 U/L 9-64 Lab Interpretation (test code = 13684-2) [facility]PfrbzoNcbpdjbkwny1714-78-08 17:20:00* Test Item Value Reference Range Interpretation Comments Haptoglobin (test code = 22355078) 98 mg/dL 44-215 Lab Interpretation (test code = 29060-2) Normal [facility] HospitalLDH [Lactate Dehydrogenase]2018-12-09 17:20:00* Test Item Value Reference Range Interpretation Comments LDH (test code = 30819824) 228 U/L 140-271 Lab Interpretation (test code = 23931-3) Normal [facility] HospitalHereditary Hemochromatosis, BDF0498-00-65 09:08:00* Test Item Value Reference Range Interpretation Comments Hereditary Hemochromatosis (test code = 84034-1) Comment Result: C282Y/T63NOtl mutations (C282Y and H63D) identifiedInterpretation:This patient's sample was analyzed for the hereditary hemochromatosis(HH) mutations C282Y, H63D, and S65C. One copy of C282Y and one copyof H63D were identified. Results for S65C were negative. Themutations analyzed by [facility] are most common in the Caucasianpopulation. Although some patients with this genotype experiencebi ochemically defined abnormalities of iron overload, the penetrancefor clinical symptoms, such as cirrhosis, cardiomyopathy, diabetes andarthropathy, is low. The diagnosis of HH should not rely on DNAtesting alone. Diagnosis of HH should include clinical findings andother test results, such as transferrin-iron saturation and/or serumferritin studies and/or liver biopsy. HH is inherited in a recessivemanner. All the offspring from this patient will be carriers, andother family members are at increased risk. Genetic counseling andHH molecular testing are recommended for at-risk family members.Methodology:DNA Analysis of the HFE gene was performed by PCRamplification followed by restriction enzyme digestionanalyses.Reference:Johny JS and Zeb AP. (2000). [place] Test 4:97-101.Ja SPARKS et al. (1999). AM J Prev Med 16:134-140.Hugh Grimm (2002). Lancet 360(0179):1670-98.Franci Cobb et al. (2002). Blood Cells, Molecules. andDiseases. 29(3):418-432.Sherry Bailey et al. (2003). [place] Med. 5(1):1-8.Ja SPARKS et al. (2003). [place] Med. 5(4):304-10.This test was developed and its performance characteristics determinedby [facility]. It has not been cleared or approved by the Food and DrugAdministration.Genetic counselors are available for health care providers to discussresults at [phone].Alejandra Travis, PhD, Hillary Christensen, PhD, Leatha العراقيSAdria, PhD, Torsten Hurst, PhD, Sony Martinez, PhD, Layne Alexandre, PhD, FAC EVETTE (test code = EVETTE) Performed at: 01 - [facility] [id number] [place], [place] [id number] Director: Gloria Martinez MD, Phone: [phone] [facility] HospitalWgsuxcR-Yezxg0839-59-13 14:41:00* Test Item Value Reference Range Interpretation Comments D-Dimer (test code = 99501717) 0.22 0.22- 0.48 ug/mL FEU Values of quantitative D-Dimer less than 0.40 ug/mL FEU have been reported to be associated with a low probability of deep vein thrombosis/pulmonary embolism. This test alone should not be used to rule out DVT/PE. Lab Interpretation (test code = 73362-0) Normal [facility] BMP - In Lab (STAT)2018-12-06 11:01:00* Test Item Value Reference Range Interpretation Comments Hold Specimen (test code = 03119915) [id number] [facility] HospitalUrea Nitrogen/Jgiabxopne8549-26-96 16:43:00* Test Item Value Reference Range Interpretation Comments Urea Nitrogen (test code = 74912707) 10.0 mg/dL 7-25 Creatinine (test code = 03290742) 1.3 mg/dL 0.6-1.2 H GFR, Estimated (test code = 99276644) 41 >=90 mL/min/1.73 m2 L Lab Interpretation (test code = 48922-4) Abnormal [facility] Mexzkhz4760-02-14 16:43:00* Test Item Value Reference Range Interpretation Comments Iron (test code = 62172231) 184 ug/dL 50-212 TIBC (test code = 09598083) 253 ug/dL 250-450 % Iron Sat (test code = 30089414) 73 % Transferrin (test code = 25069151) 180.95 mg/dL 203-362 L Lab Interpretation (test code = 86442-9) Abnormal [facility]
--- NOTE | 2019-11-20 11:32 | Diagnostic Imaging Report ---
Exam: Wrist 3 views and forearm 2 views History: Fall, pain Comparison: None. Findings: Transverse fracture of the distal radius with dorsal angulation. Probable intra-articular extension. Posttraumatic positive ulnar variance. Bone demineralization. Soft tissue swelling. Impression: Transverse fracture of the distal radius with dorsal attenuation. Probable intraarticular extension. Signed by: Dr. Jude Salcedo M.D. on 11/20/2019 11:29 AM
--- NOTE | 2019-11-20 11:38 | Diagnostic Imaging Report ---
Exam: Rib series History: Pain Comparison: None. Findings: No fracture or malalignment. No abnormal soft tissue calcification or soft tissue defect. Impression: No displaced rib fracture Signed by: Dr. Jude Salcedo M.D. on 11/20/2019 11:35 AM
[2019-11-20] MEDS ORDERED: ULTRAM50 MG PO (12:45)
[2019-11-20] MEDS ORDERED: HYDROCODONE/APAP 10MG-325MG TAB PO ONE (12:45)
[2019-11-20] MEDS ORDERED: IBUPROFEN 400 MG TAB PO ONE (12:45)
[2019-11-20] MEDS ORDERED: TYLENOL # 31 EA PO (12:45)
[2019-11-20] MEDS ORDERED: ONDANSETRON HCL 4 MG ORAL DISINTEGRATING TAB PO ONE (13:15)
[2019-11-20] MEDS ORDERED: LORAZEPAM 1 MG TAB PO ONE (13:15)
== END 2019-11-20 13:55 | disposition home or self-care (01) ==
LOC: ER 10:30
DX: M25.531 Pain in right wrist (principal); S52.501A Unspecified fracture of the lower end of right radius, initial encounter for closed fracture; S20.211A Contusion of right front wall of thorax, initial encounter; W18.30XA Fall on same level, unspecified, initial encounter; I10 Essential (primary) hypertension; J44.9 Chronic obstructive pulmonary disease, unspecified; F41.9 Anxiety disorder, unspecified; F32.9 Major depressive disorder, single episode, unspecified; Z85.89 Personal history of malignant neoplasm of other organs and systems
CPT/HCPCS: 29125; 71101; 73090; 73110; 99284; Q0162